=== PATIENT | male | born 1945 | race Caucasian/White ===

== ENCOUNTER 2022-05-25 13:27 | Outpatient (CLI) | payer MEDICARE, SELFPAY ==
[2022-05-25 17:42] LABS: Uric Acid* 6.9 mg/dL (2.2-8.4)
[2022-05-25 18:25] LABS: PCR FLU A Negative PCR FLU A (Negative); PCR FLU B Negative PCR FLU B (Negative); PCR RSV Negative PCR RSV (Negative)
[2022-05-25 18:28] LABS: SARS PCR* Negative SARS-CoV-2 (Negative)
== END 2022-05-25 13:28 | disposition home or self-care (01) ==
PROVIDERS: PCP Family Medicine; Visit Provider Family Medicine
DX: Z20.822 Contact with and (suspected) exposure to COVID-19 (principal); R05.9 Cough, unspecified; M79.675 Pain in left toe(s)
CPT/HCPCS: 84550; 87502; 87634; 87635

== ENCOUNTER 2022-12-29 08:14 | Outpatient (CLI) | payer MEDICARE, SELFPAY | END 2022-12-29 08:15 | disposition home or self-care (01) | LOC: LONREF 08:15 | PROVIDERS: PCP Family Medicine; Visit Provider Family Medicine | DX: I10 Essential (primary) hypertension (principal); E13.9 Other specified diabetes mellitus without complications; E78.5 Hyperlipidemia, unspecified; E66.9 Obesity, unspecified; M10.9 Gout, unspecified | CPT/HCPCS: 80048 ==

== ENCOUNTER 2023-04-26 08:10 | Outpatient (CLI) | payer MEDICARE, SELFPAY | END 2023-04-26 08:11 | disposition home or self-care (01) | PROVIDERS: PCP Internal Medicine; Visit Provider Internal Medicine | DX: Z00.00 Encounter for general adult medical examination without abnormal findings (principal); I10 Essential (primary) hypertension; E13.9 Other specified diabetes mellitus without complications; E78.5 Hyperlipidemia, unspecified; E66.9 Obesity, unspecified; M10.9 Gout, unspecified; R35.0 Frequency of micturition; Z12.5 Encounter for screening for malignant neoplasm of prostate; Z13.9 Encounter for screening, unspecified | CPT/HCPCS: 80053; 80061; 84153 ==

== ENCOUNTER 2023-12-22 08:06 | Outpatient (CLI) | payer MEDICARE, SELFPAY ==
--- OUTSIDE RECORDS SUMMARY | 2023-12-22 08:13 | XMS_ITS | Clinical Summary ---
Author Organization [employer] [facility] [employer] [facility] Address [place], [place] [address] Care Team Providers Care Medical Anthropology Director Name Role Phone Antoine Edgar MD Primary Care Provider [phone] Allergies No known active allergies Medications Medication Sig Dispensed Refills Start Date End Date Status rOPINIRole (REQUIP) 1 mg tablet Take 1 mg by mouth at bedtime. 05/21/2021 Active chlorthalidone (HYGROTON) 25 mg tablet Take 25 mg by mouth once daily. 05/20/2021 Active lisinopriL (PRINIVIL; ZESTRIL) 40 mg tablet Take 40 mg by mouth once daily. 05/21/2021 Active magnesium oxide (MAG-OXIDE ORAL) Take by mouth. Acti ve tamsulosin (FLOMAX) 0.4 mg capsuleIndications:Ga stroesophageal reflux disease, unspecified whether esophagitis present,Abdominal pain, epigastric Take 0.4 mg by mouth. 06/15/2022 Active rosuvastatin (CRESTOR) 10 mg tabletIndications:Gas troesophageal reflux disease, unspecified whether esophagitis present,Abdominal pain, epigastric Take 10 mg by mouth once daily. 04/11/2022 Active indomethacin (INDOCIN) 50 mg capsuleIndications:Ga stroesophageal reflux disease, unspecified whether esophagitis present,Abdominal pain, epigastric TAKE 1 CAPSULE BY MOUTH THREE TIMES DAILY WITH FOOD OR MILK 05/25/2022 Active omeprazole (PRILOSEC) 40 mg Delayed-Release capsuleIndications:Ga stroesophageal reflux disease, unspecified whether esophagitis present,Abdominal pain, epigastric,Hiatal hernia Take 1 Capsule (40 mg) by mouth once daily. Take 30-60 minutes before a meal/food once a day. 90 Capsule 3 09/30/2022 Active Active Problems No known active problems Family History Relation Name Status Comments Father Mother Social History Tobacco Use Types Packs/Day Years Used Date Smoking Tobacco: Former Smokeless Tobacco: Never Tobacco Cessation:Counseling Given: Yes Alcohol Use Standard Drinks/Week Comments Never 0 (1 standard drink = 0.6 oz pur e alcohol) Social Connections Answer Date Recorded Frequency of Communication with Friends and Fami ly Not on file 06/26/2022 Sex and Gender Information Value Date Recorded Sex Assigned at Not on file Gender Identity Not on file Sexual Orientation Not on file Obstetrics History Last Filed Vital Signs Vital Sign Reading Time Taken Comments Blood Pressure 101/59 09/30/2022 9:28 AM CDT Pulse 65 09/30/2022 9:28 AM CDT Temperature 36.3 ??C (97.3 ??F) 07/22/2021 6:45 PM CS T Respiratory Rate 14 09/30/2022 9:28 AM CDT Oxygen Saturation 92% 09/30/2022 9:28 AM CDT Inhaled Oxygen Concentration - - Weight 114.3 kg (252 lb) 06/26/2022 3:25 PM PACKAGER Height 190.5 cm (6' 3) 07/22/2021 11:37 AM PACKAGER Body Mass Index 31.5 07/22/2021 11:37 AM PACKAGER Plan of Treatment Health Maintenance Due Date Last Done Comments Tdap 08/14/1956 Depression screening for age 12+ 1955 BMI (ht and wt on same day) for age 18+ 08/14/1961 Tetanus booster 1963 Zoster (shingles) series for age 50+ (1 of 2) 08/14/1993 Medicare Wellness for age 65+ 08/14/2008 Pneumococcal series for age 65+ (1 of 1 - PCV) 08/14/2008 COVID-19 vaccine series ( season) 2023 04/08/2022, 12/21/2021, 03/24/2021 Influenza for age 65+ 02/06/2024 Medical Devices Implanted Type Area General Utility Maintenance Repairer Device Identifier Shelf Expiration Date Model / Serial / Lot Bone Matrix 3.0cc Augment Injectable - [id number] Implanted:Qty: 1 on 07/22/2021 by Jayden Goldstein MD at [facility] Right: Foot [employer] 10/04/2022 [id number] / / [id number] - [id number] Implanted:Qty: 1 on 07/22/2021 by Jayden Goldstein MD at [facility] Right: Foot 02/02/2022 [id number] / / [id number] Description:OSSIO FIBER COMP RESSION SCREW [id number] Explanted Type Area General Utility Maintenance Repairer Device Identifier Shelf Expiration Date Model / Serial / Lot Wire Kirs .[id number]/Pk Depuy/Garry - [id number] Explanted:Qty: 1 on 07/22/2021 at [facility] Right: Foot [employer] / / Description:[id number] Advance Directives * Full Code (Latest Code Status on File) Date Activated Date Inactivated Comments 07/22/2021 11:01 AM 07/22/2021 9:09 PM Question Answer Comments Code Status Discussion: Per Existing OrderDiscus sed Care Teams Medical Anthropology Director Relationship Specialty Start Date End Date Antoine Edgar MD PCP - General Family Practice 12/05/20
--- OUTSIDE RECORDS SUMMARY | 2023-12-22 08:13 | XMS_ITS | Encounter Summary ---
Author Name [facility] [place] [facility] [place] [facility] [place] Address [address] [place] [id number] Care Team Providers Care Route Contractor Name Role Phone [facility] Primary Care Provider Unavailabl e Insurance Providers: All historical and current Section Date Range: From patient's date of to the date document was created. This section includes the names of all active insurance providers for the patient. Insurance Provider Type of Coverage Plan Name Start of Policy Coverage End of Policy Coverage Group Number Member ID Insurance Provider's Telephone Number Policy Montaño's Name Patient's Relationship to Policy Montaño [facility] (WNR) MEDICARE [facility] ([facility]) Jun 07, 2019 [id number] NATALIE SALCIDO PATIENT [facility] (WNR) MEDICARE [facility] ([facility]) Jun 07, 2019 [id number] NATALIE SALCIDO PATIENT Selected Encounter This section includes the information on record at [place] for the Encounter. Date/Time Encounter Type Encounter Description Reason Provider Source Sep 20, 2023 02:30 PM OFFICE O/P EST MOD 30 MIN PRIMARY CARE/MEDICINE ICD-10-CM Z00.01 Encounter for general adult medical exam w abnormal findings [facility] IHE Encounter Template Text not used by [facility] Assessments - Encounter Diagnoses This section includes the primary and secondary diagnoses documented for the Encounter. Date/Time Primary/Secondary Diagnosis Diagnosis Name Provider Source Sep 20, 2023 03:24 PM PRIMARY Encounter for general adult medical exam w abnormal findings [facility] Sep 20, 2023 03:24 PM SECONDARY Allergic rhinitis, unspecified [facility] Sep 20, 2023 03:24 PM SECONDARY Benign prostatic hyperplasia with lower urinary tract symp [facility] Sep 20, 2023 03:24 PM SECONDARY Essential (primary) hypertension [facility] Sep 20, 2023 03:24 PM SECONDARY Gastro-esophageal reflux disease without esophagitis [facility] Sep 20, 2023 03:24 PM SECONDARY Hyperlipidemia, unspecified [facility] Sep 20, 2023 03:24 PM SECONDARY Obesity, unspecified [facility] Sep 20, 2023 03:24 PM SECONDARY Other obstructive and reflux uropathy [facility] Sep 20, 2023 03:24 PM SECONDARY Sensorineural hearing loss, bilateral [facility] Sep 20, 2023 03:24 PM SECONDARY Type 2 diabetes mellitus without complications [facility] Vital Signs: All taken on the encounter date This section contains inpatient and outpatient Vital Signs collected on the date of the Encounter. Date/Time Temperature Pulse Blood Pressure Respiratory Rate SP02 Pain Height Weight Body Mass Index Source Sep 20, 2023 02:26 PM 97.7 60 128/64 17 98 0 74.25 248.7 32 [facility] Social History: Smoking Status (Most current) and Tobacco Use (All prior to encounter date) This section includes the most current, and the historical, smoking and tobacco- related health factors from the [place] facility where the Encounter took place. Current Smoking Status This section includes the most current smoking, or tobacco-related health factor, from the [place] facility where the Encounter took place. Date/Time Current Smoking Status Kwaku reyes Sep 20, 2023 02:30 PM VA-TOBACCO FORMER USER [facility] Tobacco Use History This section includes a history of the smoking, or tobacco-related health factors, that were collected on or before the date of the Encounter. The data comes from the [place] facility where the Encounter took place. Date/Time Smoking Status/Tobacco Use Comment F acility Sep 20, 2023 02:30 PM VA-TOBACCO QUIT 15 YRS OR MORE [facility] Encounter Notes: All associated encounter notes This section contains the clinical notes associated to the Encounter. Date/Time Encounter Note(s) Provider Source Sep 20, 2023 02:54 PM H & P NOTE: LOCAL TITLE: [facility] ANNUAL VISIT STANDARD TITLE: H & P NOTE DATE OF NOTE: SEP 20, 2023@14:54 ENTRY DATE: SEP 20, 2023@14:54:20 AUTHOR: CLIFF HILL EXP COSIGNER: URGENCY: STATUS: COMPLETED Today's Nurse check-in paper sheet with vitals reviewed. Seen in clinic today respecting current PPE guidelines. Patient brought in outside medical records and have been reviewed: NO Co-managed care with a non-VA provider. Ancelmo Vaughn [facility] Battery Repairer at [facility] Chief complaint:NATALIE SALCIDO is a 78 year old MALE is here for Wellness and preventive medicine visit. The patient has no concerns today. History of Present Illness: Mr. Salcido is a man with a known history of diabetes, hypertension, hyperlipidemia, gout, gastroesophageal reflux, benign prostatic hypertrophy, adenomatous colon polyps, hearing impairment, restless legs, obesity, fatty liver, previous history of skin cancer, vasovagal syncope and hiatal hernia. He is here today for his annual visit and brings all his pill bottles which does not include rosuvastatin. He says he recently ran out of rosuvastatin and is in the process of having it filled at his NON-VA pharmacy. He is tolerating all of his medications without any side effects. He has had occasional cough and feels that he has had a pulled muscle in his left inguinal area. He notes mild discomfort and recalls that it was checked out previously and he did not have a hernia. He does not have any other associated symptoms of nausea or vomiting or diarrhea or constipation or fever or urinary symptoms at this time. He is right-handed and feels that his core strength could be better. He is walking regularly to help reduce weight. He has quit tobacco use and drinks alcohol occasionally. No other concerns today. Review of Systems: is negative, except as above. Past Medical History Active problems - Computerized Problem List is the source for the followin. HTN - Hypertension ([facility] [id number]) 2. Hyperlipidemia ([facility] [id number]) 3. Gout 4. GERD - Gastro-Esophageal Reflux Disease ([facility] 805155060) 5. Benign Prostatic Hypertrophy with Outflow Obstruction ([facility] 173791263) 6. History of adenomatous polyp of colon - Last colonoscopy 10/20/2021 see [facility] records for details 7. Sensorineural Hearing Loss, Bilateral ([facility] [id number]) - USES HEARING AIDS - TOTAL 20%SC; IMPAIRED HEARING (10%-SC) 8. Tinnitus - TOTAL SC 20%; TINNITUS (10%-SC) 9. 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 History of surgery - s/p SKIN CANCER RESECTION - S/P Umbilical hernia repair with Mesh - s/p Shoulder surgery - s/p Right foot surgery with HARDWARE - s/p Uvulopalatopharyngoplasty 11. Body mass index 30+ - obesity 12. Fatty liver 13. Restless legs 14. Vasovagal syncope 15. Hiatal hernia 16. History of squamous cell carcinoma of skin - ALSO HX OF BASAL CELL SKIN CANCER 17. Diabetes Mellitus Type 2 ([facility] [id number]) 18. Exposure to potentially hazardous substance ([facility] [id number]) - Entered through [facility] [facility] Documentation Initiative 19. Allergic Rhinitis ([facility] [id number]) Service: Service Branch Service # Entered Discharge [employer] [id number] JUL 16, 1967 APR 18, 1969 HONORABLE Allergies: Patient has answered NKA Please see med list at the end of this note Physical Exam: Vitals: BP: 128/64 (09/20/2023 14:26) P: 60 (09/20/2023 14:26) R: 17 (09/20/2023 14:26) T: 97.7 F [36.5 C] (09/20/2023 14:26) WT: 248.7 lb [112.81 kg] (09/20/2023 14:26) BMI: 31.8 Pain: 0 (09/20/2023 14:) O2 Sat: 98% (09/20/2023 14:) General: Alert, well dressed and groomed, no apparent distress HEENT: Normocephalic, atraumatic, uses glasses, did not bring his hearing aids, severe hearing impairment noted, clears his throat during conversation. Neck movements intact Lungs: No respiratory distress GI: Abdomen is obese, Skin: is intact, unevenly hyperpigmented irregular lesion noted on left side neck closer to mandible, [place] plans to have this checked with his embalmer assistant, no rash or erythema MS: No joint swelling, ambulates without difficulty Psych: Good eye contact, speech normal rate and rhythm, affect full range Lab/Other data: Previous labs reviewed and he plans get labs done at his [facility]. Assessment/Plan: Wellness/screening visit completed. Active problems - Computerized Problem List is the source for the followin. HTN - Hypertension ([facility] [id number]) 2. Hyperlipidemia ([facility] [id number]) 3. Gout 4. GERD - Gastro-Esophageal Reflux Disease ([facility] [id number]) 5. Benign Prostatic Hypertrophy with Outflow Obstruction ([facility] [id number]) 6. History of adenomatous polyp of colon - Last colonoscopy 10/20/2021 see [facility] records for details 7. Sensorineural Hearing Loss, Bilateral ([facility] [id number]) - USES HEARING AIDS - TOTAL 20%SC; IMPAIRED HEARING (10%-SC) 8. Tinnitus - TOTAL SC 20%; TINNITUS (10%-SC) 9. Exposure to potentially hazardous substance ([facility] [id number]) - Entered through [facility] Documentation Initiative 10. Allergic Rhinitis ([facility] [id number]) 11. Body mass index 30+ - obesity 12. Fatty liver 13. Restless legs 14. Vasovagal syncope 15. Hiatal hernia 16. History of squamous cell carcinoma of skin - ALSO HX OF BASAL CELL SKIN CANCER 17. Diabetes Mellitus Type 2 ([facility] [id number]) Nutrition information provided and I have reviewed portion size necessary along with increasing water and veggie intake as tolerated to help reduce weight. He is given additional information regarding move program. Low salt and low fat diet with regular exercise as tolerated will help improve or maintain normal Blood pressure, cholesterol, maintain good health or improve health is encouraged. Goal blood pressure < 129/79 is discussed. Importance of taking at least 3 servings of dairy per day or taking a multivitamin daily or taking vitamin D 1000 units daily in winter months is discussed. Medications reviewed and is updated, Risk benefits of taking loratadine 10 mg daily and Flonase nasal spray 1 to 2 sprays to each nostril daily is discussed. He plans to get these from [id number]. Importance of compliance with statin use is discussed in detail. He plans to keep his upcoming appointment with his NON-VA clinician to have refills updated. We can consider same-day labs as appropriate at next visit. Please see nursing documentation regarding vaccination. is given number to call for appointments to have vision and hearing checked at [facility] understands and agrees to the plan. Follow up as discussed. Sooner if questions or concerns. Diabetes: Kidney Health Evaluation: eGFR and uACR (estimated Glomerular Filtration Rate and Urine Albumin-Creatinine Ratio)* Patient declines having lab(s) done Comment: Plans to send us records from [facility] Medication Reconciliation: Education Evaluations *Was medication education provided for NEW medications or CHANGES to medications? (including medication name, dose, route, reason for use, and potential side effects). Yes. Verbal education was provided to patient/caregiver and patient/caregiver verbalized understanding. TERATOGENIC MED & CONTRACEPTION REVIEW (Optional)... [place] was informed about potential teratogenic risk of prescribed medications. intentions and need for effective contraception, if applicable, were discussed. MEDICATION RECONCILIATION List Given: An updated medication list was provided to the patient/caregiver. Review Done: The medication list shown below was verified for accuracy and it includes all pending medications/active medications/all medications or discontinued within the last 90 days/all remote medications and non-VA medications. If a given category (i.e. remote meds) is not shown, that means that a patient doesn't have a medication(s) in that category. Allergies listed below were also reviewed/updated for accuracy. Allergies/ADR from [facility] may not display in CPRS. Use JLV MRT5 - Allergies/ADRs FACILITY ALLERGY/ADR -------- [facility] No Known Allergies [facility] NO KNOWN ALLERGIES Active and Recently Outpatient Medications (including Supplies): Start Date Active Non-VA Medications Refills Expiration = 1) Non-VA ALLOPURINOL 100MG TAB SiMG ACTIVE MOUTH EVERY DAY 2) Non-VA CHLORTHALIDONE 25MG TAB Sig: ACTIVE 25MG MOUTH EVERY DAY 3) Non-VA FLUTICASONE PROP 50MCG 120D NASAL ACTIVE INHL Si SPRAYS EACH NOSTRIL EVERY DAY 4) Non-VA INDOMETHACIN 50MG CAP SiMG ACTIVE THREE TIMES A DAY 5) Non-VA LISINOPRIL 40MG TAB SiMG ACTIVE MOUTH EVERY DAY 6) Non-VA LORATADINE 10MG TAB SiMG ACTIVE MOUTH EVERY DAY 7) Non-VA MAGNESIUM OXIDE 400MG TAB Sig: ACTIVE 400MG MOUTH EVERY DAY 8) Non-VA METFORMIN HCL 1000MG TAB Sig: ACTIVE 1000MG MOUTH TWO TIMES A DAY 9) Non-VA OMEPRAZOLE 20MG EC CAP SiMG ACTIVE MOUTH EVERY DAY 10) Non-VA ROPINIROLE HCL 1MG TAB SiMG ACTIVE MOUTH EVERY DAY 11) Non-VA ROSUVASTATIN TAB Si MG TAKE ACTIVE TWO 5MG TABLETS MOUTH EVERY DAY 12) Non-VA TAMSULOSIN HCL 0.4MG CAP Sig: ACTIVE 0.4MG MOUTH EVERY DAY /carmelo/ CLIFF HILL MD PHYSICIAN [facility] Signed: 09/20/2023 15:24 CLIFF HILL [facility] Sep 20, 2023 02:29 PM PRIMARY CARE NURSI NG NOTE: LOCAL TITLE: [facility] NURSING PROGRESS NOTE STANDARD TITLE: PRIMARY CARE NURSING NOTE DATE OF NOTE: SEP 20, 2023@14:29 ENTRY DATE: SEP 20, 2023@14:29:32 AUTHOR: POP BEAVERS EXP COSIGNER: URGENCY: STATUS: COMPLETED TYPE OF VISIT: Appointment Check In Type of appointment: In-person appointment REASON FOR VISIT: ANNUAL ALLERGIES: Patient has answered NKA VITAL SIGNS: Blood Pressure: 128/64 (09/20/2023 14:26) Pulse: 60 (09/20/2023 14:26) Respiration: 17 (09/20/2023 14:26) Temperature: 97.7 F [36.5 C] (09/20/2023 14:26) Weight: 248.7 lb [112.81 kg] (09/20/2023 14:26) Height: 74.25 in [188.6 cm] (09/20/2023 14:26) BMI: 31.8 O2 Sat: 98% (09/20/2023 14:26) Pain: 0 (09/20/2023 14:26) PAIN SCREEN: Patient is not having significant pain that they wish to discuss with their provider today. MEDICATION Active Outpatient Medications (including Supplies): Non-VA ALLOPURINOL 100MG TAB 100MG MOUTH EVERY DAY ACTIVE Non-VA CHLORTHALIDONE 25MG TAB 25MG MOUTH EVERY DAY ACTIVE Non-VA INDOMETHACIN 50MG CAP 50MG THREE TIMES A DAY ACTIVE Non-VA LISINOPRIL 40MG TAB 40MG MOUTH EVERY DAY ACTIVE Non-VA MAGNESIUM OXIDE 400MG TAB 400MG MOUTH EVERY DAY ACTIVE Non-VA OMEPRAZOLE 20MG EC CAP 20MG MOUTH EVERY DAY ACTIVE Non-VA ROPINIROLE HCL 1MG TAB 1MG MOUTH EVERY DAY ACTIVE Non-VA ROSUVASTATIN TAB 10 MG TAKE TWO 5MG TABLETS MOUTH ACTIVE EVERY DAY Non-VA TAMSULOSIN HCL 0.4MG CAP 0.4MG MOUTH EVERY DAY ACTIVE Patient reports the following changes regarding the current pharmacy list of medications: NO CHANGES Over the Counter/Herbal Medications: The patient denies taking any outside medications or herbals. Diabetic Eye Screening: Prior exam/eye care done elsewhere within past year (or within past two years if negative history of retinopathy): Diabetic retinal exam result: Negative for Retinopathy Date: April 07, 2023 Location: [facility] Comment: NEGATIVE PAVE Foot Check: A complete foot check was completed at this encounter. VISUAL INSPECTION: Includes inspection for skin breaks, deformity, erythema, trauma, pallor on elevation, dependent rubor, nail deformities, extensive callus and pitting edema. Visual exam results: Normal PEDAL PULSES: Includes palpation of dorsalis and posterior tibial pulses and signs/symptoms of vascular compromise like pain, pallor, parasthesia or paralysis. Present (even if diminished) SENSORY CHECK: Includes 10 gram Monofilament (Randolph-Josué) test of sensation. Intact (Greater than or equal to 80% of sites checked) Abnormal (Less than 80% of sites checked): Intact LOW-RISK: LOW RISK INFORMATION PROVIDED: 1. Advised patient not to walk barefoot. 2. Explained the importance of daily foot checks for changes. 3. Stressed the importance of daily foot hygiene, including bathing and complete drying. The patient verbalized understanding and was offered a detailed handout on diabetic foot care. Suicide Screen: C-SSRS Screening Dat[place] Suicide Severity Rating Scale (C-SSRS) screener 1. Over the past month, have you wished you were or wished you could go to sleep and not wake up? No 2. Over the past month, have you had any actual thoughts of killing yourself? No 3. Over the past month, have you been thinking about how you might do this? Response not required due to responses to other questions. 4. Over the past month, have you had these thoughts and had some intention of acting on them? Response not required due to responses to other questions. 5. Over the past month, have you started to work out or worked out the details of how to kill yourself? Response not required due to responses to other questions. 6. If yes, at any time in the past month did you intend to carry out this plan? Response not required due to responses to other questions. 7. In your lifetime, have you ever done anything, started to do anything, or prepared to do anything to end your life (for example, collected pills, obtained a gun, gave away valuables, went to the roof but didn't jump)? No 8. If YES, was this within the past 3 months? Response not required due to responses to other questions. Depression Screening: Perform PHQ-2 A PHQ-2 screen was performed. The score was 0 which is a negative screen for depression. Over the past two weeks, how often have you been bothered by the following problems? 1. Little interest or pleasure in doing things Not at all 2. Feeling down, depressed, or hopeless Not at all Alcohol Use Screen (AUDIT-C): Alcohol Screen: SCREEN FOR ALCOHOL (AUDIT-C) An alcohol screening test (AUDIT-C) was negative (score=1). 1. How often did you have a drink containing alcohol in the past year? Consider a drink to be a 12 ounce can or bottle of regular beer, 8 ounces of malt liquor, a 5 ounce glass of table wine, or a 1.5 ounce shot of liquor (like scotch, gin, or vodka). Monthly or less 2. How many drinks containing alcohol did you have on a typical day when you were drinking in the past year? One or two drinks 3. How often did you have six or more drinks on one occasion in the past year? Never Nursing Annual Screening: Fall History Screen During the past 12 months, have you had any falls? Patient does not report any falls in the past 12 months. MEDICATIONS: Patient is on one of the following medication classes: Antihypertensives, Antidepressants, Antipsychotics, Diuretics, or Controlled substance medication used for pain. Script Talk Screen Are you able to read your prescription bottles with your glasses, magnifiers or other aids? Yes or patient not taking any prescriptions. Skin Screen Patient reports any current pressure ulcers, a history of pressure ulcers, or a wound from a medical accounting clerk or Patient is bed-confined or a wheelchair-user or Patient requires assistance to transfer/change position No, Skin Screen is Negative Home Abuse/Violence Screen Is your home free of abuse and violence? Yes MOVE! Program Screen Body Mass Index (BMI)= 31.8 Organ: Collection DT Specimen Test Name Result Units Ref Range 04/13/2023 07:52 BLOOD !! HEMOGLOBIN A1C 6.6 H % 4.0 - 6.0 !! Indicates COMMENTS AVAILABLE...Refer to Interim Lab Report. [place] Hgb A1C: No data available [place] Hgb A1C: No data available Point of Care Hgb A1C: POC HGB A1C____ Outpatient Nutrition Screen Body Mass Index (BMI)= 31.8 Organ: Collection DT Specimen Test Name Result Units Ref Range 04/13/2023 07:52 BLOOD !! HEMOGLOBIN A1C 6.6 H % 4.0 - 6.0 !! Indicates COMMENTS AVAILABLE...Refer to Interim Lab Report. [place] Hgb A1C: No data available [place] Hgb A1C: No data available Point of Care Hgb A1C: POC HGB A1C____ Is patient's BMI less than 18.5? No Does patient have swallowing, coughing, or chewing problems affecting oral intake? No Has patient experienced unplanned weight loss or gain greater than 10 pounds over the last 2 months? No Is patient's Hgb A1C (Glycosylated Hemoglobin) greater than 9.5? No Is patient receiving Total Parenteral Nutrition (TPN) or Tube Feedings? No Patient Health Education Screen BARRIERS/SPECIAL NEEDS: Hearing limitations Visual limitations PREFERRED STYLE OF LEARNING: No preference stated Client Assistive Service (ANABEL) Screen Does the patient require assistance with outpatient visit? No Tobacco Use Screening: The patient is a former tobacco user. The patient quit fifteen or more years ago. Homelessness/Food Insecurity Screen: In the past 2 months, have you been living in stable housing that you own, rent, or stay in as part of a household? Yes - Living in stable housing. Are you worried or concerned that in the next 2 months you may NOT have stable housing that you own, rent, or stay in as part of a household? No - Not worried about housing near future The reports the following: Within the past 12 months, you worried whether your food would run out before you got money to buy more. Never true Within the past 12 months, the food you bought just didn't last and you didn't have money to get more. Never true Food Assistance Programs [facility] Food Assistance Programs [facility] ADV DIR Notification and Screening: ADVANCE DIRECTIVE NOTIFICATION: Patient was given written notification of the following rights: 1. Accept or refuse any medical treatment. 2. Complete a durable power of bankruptcy attorney for health care. 3. Complete a living will. ADVANCE DIRECTIVE SCREENING: Does patient have an Advance Directive? The patient does not have an Advance Directive. The patient does not wish to create an Advance Directive for health care. Sexual Orientation: The patient thinks of their sexual orientation as: Straight or Heterosexual /carmelo/ POP BEAVERS LPN LICENSED PRACTICAL NURSE Signed: 09/20/2023 14:38 POP BEAVERS [facility]
--- OUTSIDE RECORDS SUMMARY | 2023-12-22 08:13 | XMS_ITS ---
[place] [facility] Encounter Summary Created on: December 22, 2023 NATALIE SALCIDO : 1945 Sex: Male Author Name [facility] [facility] [place] Address [address] [place] [address] Care Team Providers Care Recreation Program Coordinator Name Role Phone LIZCLIFF Primary Care Provider Unavailabl e Insurance Providers: [...] Patient's Relationship to Policy Montaño [facility]-CARE OF [facility] (WNR) MEDICARE [facility] ([facility] Jun 07, 2019 [id number] [phone] LOLYNATALIE Logan PATIENT [facility] [place] [facility] (WNR) MEDICARE ADVANTAGE [facility] ([facility] Jun 07, 2019 [id number] [phone] NATALIE SALCIDO PATIENT Selected Encounter This section includes the information on record at [place] for the Encounter. Date/Time Encounter Type Encounter Description Reason Provider Source Jan 21, 2023 09:00 AM MEDICAL NUTRITION INDIV IN NUTRITION/DIETETI CS-INDIVIDUAL ICD-10-CM Z71.3 Dietary counseling and surveillance KASH CARTY IHShad Encounter Template Text not used by [facility] Assessments - Encounter Diagnoses This section includes the primary and secondary diagnoses documented for the Encounter. Date/Time Primary/Secondary Diagnosis Diagnosis Name Provider Source Jan 22, 2023 07:46 AM PRIMARY Dietary counseling and surveillance VANESSA CARTY [facility] Jan 22, 2023 07:46 AM SECONDARY Type 2 diabetes mellitus without complications VANESSA CARTY [facility] Plan of Treatment: Future Appointments (+ 6 months) and Future Tests (+/- 45 days) The Plan of Treatment section includes future care activities for the patient from all [place] treatmentfacilities. This section includes future appointments and future orders which are active, pending or scheduled. Future Appointments This section includes appointments that were scheduled to occur 6 months from the date of the Encounter, up to a maximum of 20 appointments. The data comes from all [place] treatment facilities. Appointment Date/Time Appointment Type Appointme nt Facility Name Mar 02, 2023 10:00 AM AMBULATORY - MEDICINE [facility] Apr 13, 2023 08:00 AM AMBULATORY - NONE [facility] Encounter Notes: All associated encounter notes This section contains the clinical notes associated to the Encounter. Date/Time Encounter Note(s) Provider Source Jan 21, 2023 08:22 AM NUTRITION EDUCATIO N NOTE: LOCAL TITLE: EDUCATION NUTRITION STANDARD TITLE: NUTRITION EDUCATION NOTE DATE OF NOTE: JAN 21, 2023@08:22 ENTRY DATE: JAN 21, 2023@08:22:10 AUTHOR: TOÑA CARTY EXP COSIGNER: URGENCY: STATUS: COMPLETED SUBJECT: NUTRITION NUTRITION EDUCATION OUTPATIENT Initial Time spent: 30 mins Reason for visit: diabetes ASSESSMENT: Height: 74.5 in [189.2 cm] (09/07/2022 10:21) Weight: Measurement DT WEIGHT LB(KG)[BMI] 01/22/2023 07:39 245.9(111.54)[31*] 09/07/2022 10:21 254.1(115.26)[32*] Weight change: -9 lb x 4 months Pertinent Past Medical History: HTN, hiatal hernia,DMT2, GERD, HLD, hx adenomatous polyp of colon, fatty liver, vasovagal syncope, hx squamous cell carcinoma of skin Nutrition Related Medications: non-va: lisinopril oxide, omeprazole, rosuvastatin EDUCATION SCREENING PARTICIPANTS: Patient BARRIERS/SPECIAL NEEDS: no barriers identified READINESS TO LEARN: no barriers Patient subjective statements: Connected w/ in clinic, initial, Sergey present. Pt reports here for diabetes, recent start of metformin (Dr. Herve Hanson). Has been cutting back on bread, and limiting vinson - uses wheat tortilla for sandwiches, Sergey uses brown rice if including rice. Gets cramps in legs - notices walking helps this. 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 Diet Recall Meal 1: 1 slice wheat toast, banana (often) <or> smoothie (van yogurt, fruit) 1/2 mile walk q 5 days/week Meal 2: sandwich w/ wheat tortilla, less vinson, meat, cheese Meal 3: meat (cut out potatoes and rice) vegetable (ie salad mix) Snack: HS snack fruit <or> pecans Fluid intake: 1% milk (1x/day HS), no soda, mostly water, body armor Meal preparation: Dining out: Alcohol: Food Allergies: None Problems related to food security: denied Activity level: 1/2 mile walk 5 days week; milan to stretch - Malnutrition Assessment (Per AND/ASPEN Consensus Statement, 2012) Dietitian does not suspect malnutrition at this time, therefore, physical assessment not conducted Pertinent lab results: HEMOGLOBIN A1C 7.1 H (09/07/22) GLUCOSE 115 H (09/07/22) Lipid Panel: CHOLESTEROL 164 (09/07/22) MEASURED LDL____ HDL 33 L (09/07/22) TRIGLYCERIDE____ LDL CALCULATION 85 (09/07/22) CREATININE 1.2 (09/07/22) Estimated GFR 09/07/2022 11:32 .CREAT EGFR(CKD-E 2 Ref: >=60 Blood Pressure: 156/78 (09/07/2022 10:48) Self-monitored blood glucose: no Carbohydrates per meal: rec 3-4 choices (45-60 g) to start w/ 0-1 per snack per day NUTRITION DIAGNOSIS: Food and nutrition knowledge deficit r/t no formal nutrition education for diabetes AEB A1C 7.1, interested and motivated to make nutrition changes, subjective statements, meal recall INTERVENTION: Provided nutrition education/counseling: - Reviewed plate method using Diabetes Meal Planning_Plan your plate handout. Encouraged pairing CHO + pro for blood sugar management. Reviewed 1 serving = 15 g carb, recommended 3-4 servings/choices per meal to start with. Reviewed serving list of CHO foods. Pt able to verbalize servings of CHO choices in example meal. - Encouraged avoiding added sodium for blood pressure. Able to talk more sodium at follow up. - Commended on cutting out fast food on driving days, adding a walk most days Education provided using: Handouts: Diabetes meal planning plan your plate handout Discussion PARTICIPANT(S) RESPONSE (OUTCOME): Able to communicate or demonstrate understanding with no further questions. FOLLOW UP: Follow up appointment will be scheduled: 1 month RTC /carmelo/ TOÑA CARTY MS, RD, LD Clinical Dietitian Signed: 01/22/2023 07:57 TOÑA CARTY [facility]
--- OUTSIDE RECORDS SUMMARY | 2023-12-22 08:13 | XMS_ITS | Continuity of Care Document ---
Author Name [facility] Organization [facility] Care Team Providers Care Fare Collector Name Role Phone DOD-ND Unavailable Unavailable Problems Combined list of problems from Department of Defense and Veterans Affairs facilities. It does not include entries that were removed or entered in error. Problem Status Onset Date Problem Type Date of Resolution Comments Source Exposure to potentially hazardous substance ([facility] [id number] ) Active 2023 Condition Aug 13, 2023 Entered By: ABEL JOHNSON Comment: [facility] Documentation Initiative [facility] Allergic Rhinitis ([facility] [id number]) Active Condition [facility] Benign Prostatic Hypertrophy with Outflow Obstruction ([facility] [id number]) Active Condition [facility] Body mass index 30+ - obesity Active Condition [facility] Diabetes Mellitus Type 2 ([facility] [id number]) Active Condition [facility] Family social history Active Condition Sep 07, 2022 En tered By: CLIFF HILL Comment: Lives with (day care provider) [facility] a [place] home[facility] Entered By: CLIFF HILL Comment: 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, 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[employer]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 2022 Entered By: CLIFF HILL 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, 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 [place] 2022 Entered By: CLIFF HILL Comment: Alcohol 1-2 drinks monthly or lessApr 2022 Entered By: CLIFF HILL Comment: QUIT Tobacco at age 46 >15 YRS AGO after smoking for 35yrs upto 2PPD, Now Cigars once in a whileApr 2022 Entered By: CLIFF HILL Comment: One Daughter and one son, both are in MNApr 2022 Entered By: CLIFF HILL Comment: Dad had HTN,Lived to 89, Mom was78 had a strokeApr 2022 Entered By: CLIFF HILL Comment: 3 older sisters passed at ages low 80's stroke, 78 or 80 tobacco use, and last one was 60'sApr 2022 Entered By: CLIFF HILL Comment: Walks regularly when weather permits [facility] Fatty liver Active Condition [facility] GERD - Gastro-Esophage al Reflux Disease ([facility] [id number]) Active Condition [facility] Gout Active Condition [facility] Hearing loss Active Condition [facility] Hiatal hernia Active Condition [facility] History of adenomatous polyp of colon Active Condition Sep 07, 2022 Entered By: CLIFF HILL Comment: Last colonoscopy 10/20/2021 see [facility] History of squamous cell carcinoma of skin Active Condition Sep 07, 2022 En tered By: CLIFF HILL Comment: ALSO HX OF BASAL CELL SKIN CANCER [facility] History of surgery Active Condition Sep 07, 2022 En tered By: CLIFF HILL Comment: s/p SKIN CANCER RESECTIONApr 2022 Entered By: CLIFF HILL Comment: S/P Umbilical hernia repair with MeshApr 2022 Entered By: CLIFF HILL Comment: s/p Shoulder surgeryApr 2022 Entered By: CLIFF HILL Comment: s/p Right foot surgery with HARDWAREApr 2022 Entered By: CLIFF HILL Comment: s/p Uvulopalatopharyngoplast y [facility] HTN - Hypertension ([facility] [id number]) Active Condition [facility] Hyperlipidemia Active Condition [facility] Hyperlipidemia ([facility] [id number]) Active Condition [facility] Obesity Active Condition [facility] Restless legs Active Condition [facility] Sensorineural Hearing Loss, Bilateral ([facility] [id number]) Active Condition Sep 07, 2022 En tered By: CLIFF HILL Comment: USES HEARING AIDSApr 2023 Entered By: CLIFF HILL Comment: TOTAL 20%SC; IMPAIRED HEARING (10%-SC) [facility] Tendinitis Active Condition Sep 13 012 Entered By: MANAV FOUNTAIN Comment: Right shoulder [facility] Tinnitus Active Condition [facility] Tinnitus Active Condition Sep 19 24 Entered By: CLIFF HILL Comment: TOTAL SC 20%; TINNITUS (10%-SC) [facility] Vasovagal syncope Active Condition [facility] Diagnosis: ICD-10-CM Z00.01 Encounter for general adult medical exam w abnormal findings Active Diagnosis [facility] Diagnosis: ICD-10-CM Z23 Encounter for immunization Active Diagnosis [facility] Diagnosis: ICD-10-CM Z71.3 Dietary counseling and surveillance Active Diagnosis [facility] Diagnosis: ICD-10-CM E11.9 Type 2 diabetes mellitus without complications Active Diagnosis [facility] Medications Combined list of outpatient medications from Department of Defense and Veterans Affairs facilities.Medications provided include 1) outpatient medications from the last 15 months, and 2) patient-reported medications. Medication Details Route Status Patient Instructions Prescription Expires Prescription Number Last Dispense Date Ordering Provider Order Date Order Qty Source ALLOPURINOL 100MG TAB ALLOPURI NOL 100MG TAB Non-VA TAKE ONE TABLET BY MOUTH EVERY DAY Sep 07, 2022 Non-VA Document ed by: ALESSANDRO HILL Document ed at: [facility] ACTIVE TODD HILL 2022 [facility] CHLORTHALID ONE 25MG TAB CHLORTHA LIDONE 25MG TAB Non-VA TAKE ONE TABLET BY MOUTH EVERY DAY Sep 07, 2022 Non-VA Document ed by: ALESSANDRO HILL Document ed at: [facility] TODD HILL 2022 [facility] FLUTICASONE PROPIONATE 50MCG/SPRAY SOLN,NASAL, 16GM FLUTICAS ONE PROPIONA TE 50MCG/SP RAY SOLN,JOSÉ MIGUEL AL,16GM Non-VA SPRAY 2 SPRAYS IN EACH NOSTRIL EVERY DAY FOR CONGESTI ON Sep 20, 2023 Non-VA Document ed by: ALESSANDRO HILL Document ed at: [facility] NASAL ACTIVE TODD HILL 2023 [facility] INDOMETHACI N 50MG CAP INDOMETH ACIN 50MG CAP Non-VA TAKE 1 CAPSULE TID THREE TIMES A DAY Sep 07, 2022 Non-VA Document ed by: ALESSANDRO HILL Document ed at: [facility] ACTIVE TODD HILL ME S 2022 [facility] LISINOPRIL 40MG TAB LISINOPR IL 40MG TAB Non-VA TAKE ONE TABLET BY MOUTH EVERY DAY Sep 07, 2022 Non-VA Document ed by: ALESSANDRO HILL S Document ed at: [facility]AL ACTIVE TODD HILL ME S 2022 [facility] LORATADINE 10MG TAB LORATADI NE 10MG TAB Non-VA TAKE ONE TABLET BY MOUTH EVERY DAY FOR ALLERGIE S Sep 20, 2023 Non-VA Document ed by: ALESSANDRO HILL S Document ed at: [facility] ORAL ACTIVE TODD HILL ME S 2023 [facility] MAGNESIUM OXIDE 400MG TAB MAGNESIU M OXIDE 400MG TAB Non-VA TAKE ONE TABLET BY MOUTH EVERY DAY Sep 07, 2022 Non-VA Document ed by: ALESSANDRO HILL S Document ed at: [facility] ORAL ACTIVE TODD HILL ME S 2022 [facility] METFORMIN HCL 1000MG TAB METFORMI N HCL 1000MG TAB Non-VA TAKE ONE TABLET BY MOUTH TWO TIMES A DAY FOR DIABETES Sep 20, 2023 Non-VA Document ed by: ALESSANDRO HILL S Document ed at: [facility] ORAL ACTIVE TODD HILL ME S 2023 [facility] NAPROXEN 250MG TAB NAPROXEN 250MG TAB Non-VA TAKE ONE TABLET BY MOUTH TWICE A DAY NEEDED Sep 14, 2011 Non-VA Document ed by: MANAV FOUNTAIN Document ed at: [facility] ORAL ACTIVE Yolande FOUNTAIN 2011 [facility] OMEPRAZOLE 20MG CAP,EC OMEPRAZO LE 20MG CAP,EC Non-VA TAKE 1 CAPSULE BY MOUTH EVERY DAY Sep 07, 2022 Non-VA Document ed by: ALESSANDRO HILL S Document ed at: [facility] ORAL ACTIVE TODD HILL ME S 2022 [facility] ROPINIROLE HCL 1MG TAB ROPINIRO LE HCL 1MG TAB Non-VA TAKE ONE TABLET BY MOUTH EVERY DAY Sep 07, 2022 Non-VA Document ed by: ALESSANDRO HILL Document ed at: [facility] ORAL ACTIVE TODD HILL S 2022 [facility] ROSUVASTATI N TAB ROSUVAST ATIN TAB Non-VA TAKE 10 MG TAKE TWO 5MG TABLETS BY MOUTH EVERY DAY Sep 07, 2022 Non-VA Document ed by: ALESSANDRO HILL Document ed at: [facility] ORAL ACTIVE TODD HILL S 2022 [facility] TAMSULOSIN HCL 0.4MG CAP TAMSULOS IN HCL 0.4MG CAP Non-VA TAKE 1 CAPSULE BY MOUTH EVERY DAY Sep 07, 2022 Non-VA Document ed by: ALESSANDRO HILL Document ed at: [facility] [place] [facility] S 2022 [facility] Immunizations Combined list of available immunizations from the Department of Defense and Veterans Affairs facilities. Immunization Series Date Given Administered By Site Reaction Lot Number CVX Code Drug Community Health Agent Status Comments Source COVID-19 ([employer]), MRNA, LNP-S, PF, MAGGIE-SUCROSE, 30 MCG/0.3 ML (AGES 12+ YEARS) 2022 309 complet ed [facility] RSV, BIVALENT, PROTEIN SUBUNIT RSVPREF, DILUENT RECONSTITUTED , 0.5 ML, PF 2022 305 complet ed [facility] INFLUENZA, HIGH-DOSE, QUADRIVALENT 2022 IVAN TERRY LEFT DELTO ID [id number] 197 complet ed [facility] ZOSTER RECOMBINANT 2022 187 complet ed [facility] ZOSTER RECOMBINANT 1 2022 POP BEAVERS LEFT DELTO ID [id number] 187 complet ed [id number] 11/05/23 [facility] COVID-19 ([employer]), MRNA, LNP-S, BIVALENT BOOSTER, PF, 30 MCG/0.3 ML DOSE 1 2021 300 complet ed [facility] INFLUENZA VACCINE, QUADRIVALENT, ADJUVANTED 2021 205 complet ed [facility] INFLUENZA, UNSPECIFIED FORMULATION 2021 88 complet ed [facility] COVID-19 ([facility]), MRNA, LNP-S, PF, 30 MCG/0.3 ML DOSE, MAGGIE-SUCROSE (AGES 12+ YEARS) 2021 217 complet ed [facility] PNEUMOCOCCAL CONJUGATE PCV20, POLYSACCHARID E [id number] CONJUGATE, ADJUVANT, PF 2021 216 complet ed [facility] COVID-19 ([employer]), MRNA, LNP-S, PF, 30 MCG/0.3 ML DOSE 2020 208 complet ed [facility] INFLUENZA, HIGH-DOSE, QUADRIVALENT 2020 197 complet ed [facility] TDAP 2020 115 complet ed [facility] COVID-19 ([employer]), MRNA, LNP-S, PF, 30 MCG/0.3 ML DOSE 2 2020 208 complet ed PFR; [id number]; 1 [facility] COVID-19 ([employer]), MRNA, LNP-S, PF, 30 MCG/0.3 ML DOSE 1 2020 208 complet ed PFR; [id number]; 1 [facility] INFLUENZA, HIGH-DOSE, QUADRIVALENT 2019 197 complet ed [facility] INFLUENZA, HIGH DOSE SEASONAL 2018 135 complet ed [facility] INFLUENZA, HIGH DOSE SEASONAL 2016 135 complet ed [facility] PNEUMOCOCCAL POLYSACCHARID E [id number] 2015 33 complet ed [facility] PNEUMOCOCCAL, UNSPECIFIED FORMULATION 2011 NONE 109 complet ed [employer]/ [id number]/ [id number] [facility] TDAP 2011 NONE 115 complet ed Sanofi Pasteur/ [id number]/ OCTOBER 28, 2013 [facility] HEP A, ADULT 2006 52 complet ed [facility] TD (ADULT) 2006 138 complet ed [facility] TD (ADULT), 5 LF TETANUS TOXOID, PRESERVATIVE FREE, ADSORBED 2006 113 complet ed [facility] Results Combined list of recent chemistry, hematology and other laboratory results from Department of Defense and Veterans Affairs, ranging from 15 months to all on record, depending upon the facility. Order Name Results Value Reference Range Date Interpretation Specimen Comments Source HEMOGLOBI N A1C HEMOGLOBIN A1C/HEMOGLO BIN.TOTAL IN BLOOD 6.6 4.0 - 6.0 04/13 H Specimen Type: BLOOD Comment: Values obtained from A1C measurement s can vary. For typical A1C assays, a reported value of 7.0 could actually be between 6.7 and 7.3 if measured by a reference method. A reported value of 9.0 could actually be between 8.7 and 9.3. Ref: http://www. ngsp.org/[place] Pdata.asp Ordering Provider: ADIN CARTY Report Released Date/Time: Mar 02, 2023 10:40 AM Reporting Lab: [facility] [address] Performing Lab: [facility] [address] [facility] MICROALBU MIN/CREAT ININE RATIO URINE CREATININE [MASS/VOLUM E] IN URINE 174.0 mg/dL 58.0 - 161.0 09/09 H Specimen Type: URINE No comment entered. Ordering Provider: CLIFF HILL Report Released Date/Time: Sep 09, 2022 08:22 AM Reporting Lab: [facility] [address] Performing Lab: [facility] [address] [facility] MICROALBU MIN/CREAT ININE RATIO URINE MICROALBUMI N/CREATININ E [MASS RATIO] IN URINE 6.5 mg/g{c reat} <29.9 - 29.9 09/09 Specimen Type: URINE No comment entered. Ordering Provider: CLIFF HILL Report Released Date/Time: Sep 09, 2022 08:22 AM Reporting Lab: [facility] [address] Performing Lab: [facility] [address] [facility] MICROALBU MIN/CREAT ININE RATIO URINE MICROALBUMI N [MASS/VOLUM E] IN URINE 11.3 mg/L <29.9 - 29.9 09/09 Specimen Type: URINE No comment entered. Ordering Provider: CLIFF HILL Report Released Date/Time: Sep 09, 2022 08:22 AM Reporting Lab: [facility] [address] Performing Lab: [facility] [address] [facility] ALT/SGPT ALANINE AMINOTRANSF ERASE [ENZYMATIC ACTIVITY/VO LUME] IN SERUM OR PLASMA 52 U/L <55 - 55 09/07 Specimen Type: PLASMA Comment: Elevated triglycerid e result from a non-fasting specimen should be interpreted with caution. A fasting panel is recommended for accurate triglycerid es when trigs are >200 from a non-fasting specimen. Ordering Provider: CLIFF HILL Report Released Date/Time: Sep 07, 2022 11:24 AM Reporting Lab: [facility] [address] Performing Lab: [facility] [address] [facility] B 12 COBALAMIN (VITAMIN B12) [MASS/VOLUM E] IN SERUM OR PLASMA 702 pg/mL 213 - 816 09/07 Specimen Type: SERUM No comment entered. Ordering Provider: CLIFF HILL Report Released Date/Time: Sep 07, 2022 11:24 AM Reporting Lab: [facility] [address] Performing Lab: [facility] [address] [facility] BASIC METABOLIC PANEL+MG CREATININE [MASS/VOLUM E] IN SERUM OR PLASMA 1.2 mg/dL 0.7 - 1.2 09/07 Specimen Type: PLASMA Comment: Elevated triglycerid e result from a non-fasting specimen should be interpreted with caution. A fasting panel is recommended for accurate triglycerid es when trigs are >200 from a non-fasting specimen. Ordering Provider: CLIFF HILL Report Released Date/Time: Sep 07, 2022 11:24 AM Reporting Lab: [facility] [address] Performing Lab: [facility] [address] [facility] BASIC METABOLIC PANEL+MG UREA NITROGEN [MASS/VOLUM E] IN SERUM OR PLASMA 20 mg/dL 8 - 26 09/07 Specimen Type: PLASMA Comment: Elevated triglycerid e result from a non-fasting specimen should be interpreted with caution. A fasting panel is recommended for accurate triglycerid es when trigs are >200 from a non-fasting specimen. Ordering Provider: CLIFF HILL Report Released Date/Time: Sep 07, 2022 11:24 AM Reporting Lab: [facility] [address] Performing Lab: [facility] [address] [facility] BASIC METABOLIC PANEL+MG GLUCOSE [MASS/VOLUM E] IN SERUM OR PLASMA 115 mg/dL 70 - 100 09/07 H Specimen Type: PLASMA Comment: Elevated triglycerid e result from a non-fasting specimen should be interpreted with caution. A fasting panel is recommended for accurate triglycerid es when trigs are >200 from a non-fasting specimen. Ordering Provider: CLIFF HILL Report Released Date/Time: Sep 07, 2022 11:24 AM Reporting Lab: [facility] [address] Performing Lab: [facility] [address] [facility] BASIC METABOLIC PANEL+MG SODIUM [MOLES/VOLU ME] IN SERUM OR PLASMA 138 mmol/L 136 - 145 09/07 Specimen Type: PLASMA Comment: Elevated triglycerid e result from a non-fasting specimen should be interpreted with caution. A fasting panel is recommended for accurate triglycerid es when trigs are >200 from a non-fasting specimen. Ordering Provider: CLIFF HILL Report Released Date/Time: Sep 07, 2022 11:24 AM Reporting Lab: [facility] [address] Performing Lab: [facility] [address] [facility] BASIC METABOLIC PANEL+MG POTASSIUM [MOLES/VOLU ME] IN SERUM OR PLASMA 3.6 mmol/L 3.5 - 5.1 09/07 Specimen Type: PLASMA Comment: Elevated triglycerid e result from a non-fasting specimen should be interpreted with caution. A fasting panel is recommended for accurate triglycerid es when trigs are >200 from a non-fasting specimen. Ordering Provider: CLIFF HILL Report Released Date/Time: Sep 07, 2022 11:24 AM Reporting Lab: [facility] [address] Performing Lab: [facility] [address] [facility] BASIC METABOLIC PANEL+MG CHLORIDE [MOLES/VOLU ME] IN SERUM OR PLASMA 99 mmol/L 98 - 107 09/07 Specimen Type: PLASMA Comment: Elevated triglycerid e result from a non-fasting specimen should be interpreted with caution. A fasting panel is recommended for accurate triglycerid es when trigs are >200 from a non-fasting specimen. Ordering Provider: CLIFF HILL Report Released Date/Time: Sep 07, 2022 11:24 AM Reporting Lab: [facility] [address] Performing Lab: [facility] [address] [facility] BASIC METABOLIC PANEL+MG CARBON DIOXIDE, TOTAL [MOLES/VOLU ME] IN SERUM OR PLASMA 27 mmol/L 22 - 29 09/07 Specimen Type: PLASMA Comment: Elevated triglycerid e result from a non-fasting specimen should be interpreted with caution. A fasting panel is recommended for accurate triglycerid es when trigs are >200 from a non-fasting specimen. Ordering Provider: CLIFF HILL Report Released Date/Time: Sep 07, 2022 11:24 AM Reporting Lab: [facility] [address] Performing Lab: [facility] [address] [facility] BASIC METABOLIC PANEL+MG CALCIUM [MASS/VOLUM E] IN SERUM OR PLASMA 9.6 mg/dL 8.4 - 10.2 09/07 Specimen Type: PLASMA Comment: Elevated triglycerid e result from a non-fasting specimen should be interpreted with caution. A fasting panel is recommended for accurate triglycerid es when trigs are >200 from a non-fasting specimen. Ordering Provider: CLIFF HILL Report Released Date/Time: Sep 07, 2022 11:24 AM Reporting Lab: [facility] [address] Performing Lab: [facility] [address] [facility] BASIC METABOLIC PANEL+MG MAGNESIUM [MASS/VOLUM E] IN SERUM OR PLASMA 1.9 mg/dL 1.6 - 2.6 09/07 Specimen Type: PLASMA Comment: Elevated triglycerid e result from a non-fasting specimen should be interpreted with caution. A fasting panel is recommended for accurate triglycerid es when trigs are >200 from a non-fasting specimen. Ordering Provider: CLIFF HILL Report Released Date/Time: Sep 07, 2022 11:24 AM Reporting Lab: [facility] [address] Performing Lab: [facility] [address] [facility] BASIC METABOLIC PANEL+MG ANION GAP IN SERUM OR PLASMA 12 mmol/L 5 - 15 09/07 Specimen Type: PLASMA Comment: Elevated triglycerid e result from a non-fasting specimen should be interpreted with caution. A fasting panel is recommended for accurate triglycerid es when trigs are >200 from a non-fasting specimen. Ordering Provider: CLIFF HILL Report Released Date/Time: Sep 07, 2022 11:24 AM Reporting Lab: [facility] [address] Performing Lab: [facility] [address] [facility] BASIC METABOLIC PANEL+MG GLOMERULAR FILTRATION RATE/1.73 SQ M.PREDICTED [VOLUME RATE/AREA] IN SERUM, PLASMA OR BLOOD BY CREATININE- BASED FORMULA (CKD-EPI) 62 60 09/07 Specimen Type: PLASMA Comment: Elevated triglycerid e result from a non-fasting specimen should be interpreted with caution. A fasting panel is recommended for accurate triglycerid es when trigs are >200 from a non-fasting specimen. Ordering Provider: CLIFF HILL Report Released Date/Time: Sep 07, 2022 11:24 AM Reporting Lab: [facility] [address] Performing Lab: [facility] [address] [facility] CBC & DIFF LEUKOCYTES [#/VOLUME] IN BLOOD BY AUTOMATED COUNT 6.61 10*3/u L 4.0 - 11.0 09/07 Specimen Type: BLOOD Comment: Automated Differentia l Performed Ordering Provider: CLIFF HILL Report Released Date/Time: Sep 07, 2022 11:24 AM Reporting Lab: [facility] [address] Performing Lab: [facility] [address] [facility] CBC & DIFF ERYTHROCYTE S [#/VOLUME] IN BLOOD BY AUTOMATED COUNT 4.86 10*6/u L 4.6 - 6.2 09/07 Specimen Type: BLOOD Comment: Automated Differentia l Performed Ordering Provider: CLIFF HILL Report Released Date/Time: Sep 07, 2022 11:24 AM Reporting Lab: [facility] [address] Performing Lab: [facility] [address] [facility] CBC & DIFF HEMOGLOBIN [MASS/VOLUM E] IN BLOOD 14.4 g/dL 13.5 - 17.9 09/07 Specimen Type: BLOOD Comment: Automated Differentia l Performed Ordering Provider: CLIFF HILL Report Released Date/Time: Sep 07, 2022 11:24 AM Reporting Lab: [facility] [address] Performing Lab: [facility] [address] [facility] CBC & DIFF HEMATOCRIT [VOLUME FRACTION] OF BLOOD BY AUTOMATED COUNT 42.4 41 - 54 09/07 Specimen Type: BLOOD Comment: Automated Differentia l Performed Ordering Provider: CLIFF HILL Report Released Date/Time: Sep 07, 2022 11:24 AM Reporting Lab: [facility] [address] Performing Lab: [facility] [address] [facility] CBC & DIFF MCV [ENTITIC VOLUME] BY AUTOMATED COUNT 87.2 fL 80 - 100 09/07 Specimen Type: BLOOD Comment: Automated Differentia l Performed Ordering Provider: CLIFF HILL Report Released Date/Time: Sep 07, 2022 11:24 AM Reporting Lab: [facility] [address] Performing Lab: [facility] [address] [facility] CBC & DIFF MCH [ENTITIC MASS] BY AUTOMATED COUNT 29.6 pg 27 - 33 09/07 Specimen Type: BLOOD Comment: Automated Differentia l Performed Ordering Provider: CLIFF HILL Report Released Date/Time: Sep 07, 2022 11:24 AM Reporting Lab: [facility] [address] Performing Lab: [facility] [address] [facility] CBC & DIFF MCHC [MASS/VOLUM E] BY AUTOMATED COUNT 34.0 g/dL 32.0 - 37.5 09/07 Specimen Type: BLOOD Comment: Automated Differentia l Performed Ordering Provider: CLIFF HILL Report Released Date/Time: Sep 07, 2022 11:24 AM Reporting Lab: [facility] [address] Performing Lab: [facility] [address] [facility] CBC & DIFF PLATELETS [#/VOLUME] IN BLOOD BY AUTOMATED COUNT 188 10*3/u L 150 - 400 09/07 Specimen Type: BLOOD Comment: Automated Differentia l Performed Ordering Provider: CLIFF HILL Report Released Date/Time: Sep 07, 2022 11:24 AM Reporting Lab: [facility] [address] Performing Lab: [facility] [address] [facility] CBC & DIFF PLATELET MEAN VOLUME [ENTITIC VOLUME] IN BLOOD BY AUTOMATED COUNT 11.6 fL 7.4 - 10.4 09/07 H Specimen Type: BLOOD Comment: Automated Differentia l Performed Ordering Provider: CLIFF HILL Report Released Date/Time: Sep 07, 2022 11:24 AM Reporting Lab: [facility] [address] Performing Lab: [facility] [address] [facility] CBC & DIFF NEUTROPHILS /100 LEUKOCYTES IN BLOOD BY MANUAL COUNT 56.9 09/07 Specimen Type: BLOOD Comment: Automated Differentia l Performed Ordering Provider: CLIFF HILL Report Released Date/Time: Sep 07, 2022 11:24 AM Reporting Lab: [facility] [address] Performing Lab: [facility] [address] [facility] CBC & DIFF LYMPHOCYTES /100 LEUKOCYTES IN BLOOD BY MANUAL COUNT 33.1 09/07 Specimen Type: BLOOD Comment: Automated Differentia l Performed Ordering Provider: CLIFF HILL Report Released Date/Time: Sep 07, 2022 11:24 AM Reporting Lab: [facility] [address] Performing Lab: [facility] [address] [facility] CBC & DIFF MONOCYTES/1 00 LEUKOCYTES IN BLOOD BY AUTOMATED COUNT 7.9 09/07 Specimen Type: BLOOD Comment: Automated Differentia l Performed Ordering Provider: CLIFF HILL Report Released Date/Time: Sep 07, 2022 11:24 AM Reporting Lab: [facility] [address] Performing Lab: [facility] [address] [facility] CBC & DIFF EOSINOPHILS /100 LEUKOCYTES IN BLOOD BY AUTOMATED COUNT 1.1 09/07 Specimen Type: BLOOD Comment: Automated Differentia l Performed Ordering Provider: CLIFF HILL Report Released Date/Time: Sep 07, 2022 11:24 AM Reporting Lab: [facility] [address] Performing Lab: [facility] [address] [facility] CBC & DIFF BASOPHILS/1 00 LEUKOCYTES IN BLOOD BY MANUAL COUNT 0.8 09/07 Specimen Type: BLOOD Comment: Automated Differentia l Performed Ordering Provider: CLIFF HILL Report Released Date/Time: Sep 07, 2022 11:24 AM Reporting Lab: [facility] [id number] Performing Lab: [facility] [address] [facility] CBC & DIFF ERYTHROCYTE DISTRIBUTIO N WIDTH [RATIO] BY AUTOMATED COUNT 13.2 11.5 - 14.5 09/07 Specimen Type: BLOOD Comment: Automated Differentia l Performed Ordering Provider: CLIFF HILL Report Released Date/Time: Sep 07, 2022 11:24 AM Reporting Lab: [facility] [id number] Performing Lab: [facility] [address] [facility] CBC & DIFF LYMPHOCYTES [#/VOLUME] IN BLOOD BY AUTOMATED COUNT 2.19 10*3/u L 1.0 - 4.0 09/07 Specimen Type: BLOOD Comment: Automated Differentia l Performed Ordering Provider: CLIFF HILL Report Released Date/Time: Sep 07, 2022 11:24 AM Reporting Lab: [facility] [phone] Performing Lab: [facility] [address] [facility] CBC & DIFF MONOCYTES [#/VOLUME] IN BLOOD BY AUTOMATED COUNT 0.52 10*3/u L 0.1 - 1.0 09/07 Specimen Type: BLOOD Comment: Automated Differentia l Performed Ordering Provider: CLIFF HILL Report Released Date/Time: Sep 07, 2022 11:24 AM Reporting Lab: [facility] [phone] Performing Lab: [facility] [address] [facility] CBC & DIFF NEUTROPHILS [#/VOLUME] IN BLOOD BY AUTOMATED COUNT 3.77 10*3/u L 2.0 - 7.7 09/07 Specimen Type: BLOOD Comment: Automated Differentia l Performed Ordering Provider: CLIFF HILL Report Released Date/Time: Sep 07, 2022 11:24 AM Reporting Lab: [facility] [phone] Performing Lab: [facility] [address] [facility] CBC & DIFF EOSINOPHILS [#/VOLUME] IN BLOOD BY AUTOMATED COUNT 0.07 10*3/u L 0 - 0.5 09/07 Specimen Type: BLOOD Comment: Automated Differentia l Performed Ordering Provider: CLIFF HILL Report Released Date/Time: Sep 07, 2022 11:24 AM Reporting Lab: [facility] [phone] Performing Lab: [facility] [address] [facility] CBC & DIFF BASOPHILS [#/VOLUME] IN BLOOD BY AUTOMATED COUNT 0.05 10*3/u L 0 - 0.2 09/07 Specimen Type: BLOOD Comment: Automated Differentia l Performed Ordering Provider: CLIFF HILL Report Released Date/Time: Sep 07, 2022 11:24 AM Reporting Lab: [facility] [address] Performing Lab: [facility] [address] [facility] CBC & DIFF IG(META,MYE LO,PRO) 0.2 09/07 Specimen Type: BLOOD Comment: Automated Differentia l Performed Ordering Provider: CLIFF HILL Report Released Date/Time: Sep 07, 2022 11:24 AM Reporting Lab: [facility] [phone] Performing Lab: [facility] [address] [facility] CBC & DIFF IMMATURE GRANULOCYTE S [PRESENCE] IN BLOOD BY AUTOMATED COUNT 0.01 10*3/u L 0 - 0.1 09/07 Specimen Type: BLOOD Comment: Automated Differentia l Performed Ordering Provider: CLIFF HILL Report Released Date/Time: Sep 07, 2022 11:24 AM Reporting Lab: [facility] [phone] Performing Lab: [facility] [address] [facility] HEMOGLOBI N A1C HEMOGLOBIN A1C/HEMOGLO BIN.TOTAL IN BLOOD 7.1 4.0 - 6.0 09/07 H Specimen Type: BLOOD Comment: Values obtained from A1C measurement s can vary. For typical A1C assays, a reported value of 7.0 could actually be between 6.7 and 7.3 if measured by a reference method. A reported value of 9.0 could actually be between 8.7 and 9.3. Ref: http://www. ngsp.org/[place] Pdata.asp Ordering Provider: CLIFF HILL Report Released Date/Time: Sep 07, 2022 11:24 AM Reporting Lab: [facility] [phone] Performing Lab: [facility] [phone] [facility] LIPID PANEL,NON -FASTING CHOLESTEROL [MASS/VOLUM E] IN SERUM OR PLASMA 164 mg/dL <199 - 199 09/07 Specimen Type: PLASMA Comment: Elevated triglycerid e result from a non-fasting specimen should be interpreted with caution. A fasting panel is recommended for accurate triglycerid es when trigs are >200 from a non-fasting specimen. Ordering Provider: CLIFF HILL Report Released Date/Time: Sep 07, 2022 11:24 AM Reporting Lab: [facility] [phone] Performing Lab: [facility] [phone] [facility] LIPID PANEL,NON -FASTING CHOLESTEROL IN HDL [MASS/VOLUM E] IN SERUM OR PLASMA 33 mg/dL 40 09/07 L Specimen Type: PLASMA Comment: Elevated triglycerid e result from a non-fasting specimen should be interpreted with caution. A fasting panel is recommended for accurate triglycerid es when trigs are >200 from a non-fasting specimen. Ordering Provider: CLIFF HILL Report Released Date/Time: Sep 07, 2022 11:24 AM Reporting Lab: [facility] [address] Performing Lab: [facility] [address] [facility] LIPID PANEL,NON -FASTING CHOLESTEROL IN LDL [MASS/VOLUM E] IN SERUM OR PLASMA BY CALCULATION 85 mg/dL <99 - 99 09/07 Specimen Type: PLASMA Comment: Elevated triglycerid e result from a non-fasting specimen should be interpreted with caution. A fasting panel is recommended for accurate triglycerid es when trigs are >200 from a non-fasting specimen. Ordering Provider: CLIFF HILL Report Released Date/Time: Sep 07, 2022 11:24 AM Reporting Lab: [facility] [address] Performing Lab: [facility] [address] [facility] LIPID PANEL,NON -FASTING CHOLESTEROL IN VLDL [MASS/VOLUM E] IN SERUM OR PLASMA BY CALCULATION 46 mg/dL <29 - 29 09/07 H Specimen Type: PLASMA Comment: Elevated triglycerid e result from a non-fasting specimen should be interpreted with caution. A fasting panel is recommended for accurate triglycerid es when trigs are >200 from a non-fasting specimen. Ordering Provider: CLIFF HILL Report Released Date/Time: Sep 07, 2022 11:24 AM Reporting Lab: [facility] [phone] Performing Lab: [facility] [address] [facility] LIPID PANEL,NON -FASTING CHOLESTEROL NON HDL [MASS/VOLUM E] IN SERUM OR PLASMA 131 mg/dL <129 - 129 09/07 H Specimen Type: PLASMA Comment: Elevated triglycerid e result from a non-fasting specimen should be interpreted with caution. A fasting panel is recommended for accurate triglycerid es when trigs are >200 from a non-fasting specimen. Ordering Provider: CLIFF HILL Report Released Date/Time: Sep 07, 2022 11:24 AM Reporting Lab: [facility] [address] Performing Lab: [facility] [address] [facility] LIPID PANEL,NON -FASTING TRIGLYCERID E [MASS/VOLUM E] IN SERUM OR PLASMA 228 mg/dL <149 - 149 09/07 H Specimen Type: PLASMA Comment: Elevated triglycerid e result from a non-fasting specimen should be interpreted with caution. A fasting panel is recommended for accurate triglycerid es when trigs are >200 from a non-fasting specimen. Ordering Provider: CLIFF HILL Report Released Date/Time: Sep 07, 2022 11:24 AM Reporting Lab: [facility] [phone] Performing Lab: [facility] [address] [facility] TSH W/REFLEX TO FREE T4 THYROTROPIN [UNITS/VOLU ME] IN SERUM OR PLASMA 2.76 u[IU]/ mL 0.35 - 4.94 09/07 Specimen Type: PLASMA Comment: Elevated triglycerid e result from a non-fasting specimen should be interpreted with caution. A fasting panel is recommended for accurate triglycerid es when trigs are >200 from a non-fasting specimen. Ordering Provider: CLIFF HILL Report Released Date/Time: Sep 07, 2022 11:24 AM Reporting Lab: [facility] [address] Performing Lab: [facility] [address] [facility] URIC ACID URATE [MASS/VOLUM E] IN SERUM OR PLASMA 7.1 mg/dL 3.5 - 7.2 09/07 Specimen Type: PLASMA Comment: Elevated triglycerid e result from a non-fasting specimen should be interpreted with caution. A fasting panel is recommended for accurate triglycerid es when trigs are >200 from a non-fasting specimen. Ordering Provider: CLIFF HILL Report Released Date/Time: Sep 07, 2022 11:24 AM Reporting Lab: [facility] [phone] Performing Lab: [facility] [address] [facility] Vital Signs Combined list of inpatient and outpatient Vital Signs from Department of Defense and Veterans Affairs, ranging from 12 months to all on record, depending upon the facility. Vital Sign Value Date Comments Source Encounters Combined list of: 1) Encounters from Department of Veterans Affairs facilities going back up to thelast 18 months. 2) Encounters from the Department of Defense facilities going back up to 280 months. Location Location Details Encounter Type Encounter Number Reason For Visit Attending Provider ADM Date DC Date Status Disposition Source [place] [facility] Outpatient Encounter [id number] 08/18 [place] [facility] [place] [facility] Outpatient Encounter [id number] POP BEAVERS 09/03 [facility] OFFICE O/P EST HI 40-54 MIN [id number] Diagnos is: ICD-10- CM Z00.01 Encount er for general adult medical exam w abnorma l finding s
MAYUR HILL S 09/07 [facility] [place] [facility] TDAP VACCINE 7 YRS/> [place] [id number] POP BEAVERS 09/07 [place] [facility] [place] [facility] Outpatient Encounter [id number] 09/07 [facility] HC PRO PHONE CALL 21-30 MIN [id number] Diagnos is: ICD-10- CM E11.9 Type 2 diabete s mellitu s without complic ations< br/> RBUY TA 10/20 [facility] [place] [facility] Outpatient Encounter [id number] 11/25 [place] [facility] [place] [facility] Outpatient Encounter [id number] 01/13 [facility] [place] [id number] Diagnos is: ICD-10- CM Z71.3 Dietary recreational counselor ing and surveil octavia<b r/> MACHELLE,BROOK CQUELINE N 01/21 [facility] [place] [facility] Outpatient Encounter [id number] 03/01 [place] [facility] NUTRITION INDIV SUBSEQ [id number] Diagnos is: ICD-10- CM Z71.3 Dietary recreational counselor ing and surveil octavia<b r/> MACHELLEBROOK CQUELINE N 03/02 [facility] [place] [facility] Outpatient Encounter [id number] 04/07 [facility] [place]UNIZAT[facility] [place] ADMIN [id number] Diagnos is: ICD-10- CM Z23 Encount er for immuniz ation<b r/> LENA TERRY 04/13 [facility] [place] [facility] Outpatient Encounter [id number] 04/21 [facility] [place] [facility] Outpatient Encounter [id number] 04/26 [facility] OFFICE O/P EST MOD 30 MIN [id number] Diagnos is: ICD-10- CM Z00.01 Encount er for general adult medical exam w abnorma l finding s
MAYUR HILL S 09/19 [facility] Social History Combined list of available smoking, tobacco, and other social history from Department of Defense and [facility] Affairs facilities. Social History Type Response Date Comment Sourc e Tobacco smoking status [facility]-TOBACCO FORMER USER 09/20/2023 [facility] of [facility] History of tobacco use [place]-TOBACCO USER S OME DAYS 09/03/2022 [facility] History of tobacco use CURRENT TOBACCO USER 09/14/2011 [facility]
--- OUTSIDE RECORDS SUMMARY | 2023-12-22 08:13 | XMS_ITS ---
[place] [facility] Encounter Summary Created on: December 22, 2023 NATALIE SALCIDO : 1945 Sex: Male Author Name [facility] [place] [facility] [facility] [place] Address [address] [place] [address] Care Team Providers Care Professor Of Oceanography Name Role Phone [place] Primary Care Provider Unavailabl e Insurance Providers: [...] Patient's Relationship to Policy Montaño [facility] OF [facility] (WNR) MEDICARE [facility] Jun 07, 2019 [id number] LOLYNATALIE Logan PATIENT [facility] (WNR) MEDICARE [facility]) Jun 07, 2019 [id number] [phone] NATALIE SALCIDO PATIENT Selected Encounter This section includes the information on record at [place] for the Encounter. Date/Time Encounter Type Encounter Description Reason Provider Source Mar 02, 2023 10:00 AM MED NUTRITION INDIV SUBSEQ NUTRITION/DIETETI CS-INDIVIDUAL ICD-10-CM Z71.3 Dietary counseling and surveillance KASH CARTY IHShad Encounter Template Text not used by [facility] Assessments - Encounter Diagnoses This section includes the primary and secondary diagnoses documented for the Encounter. Date/Time Primary/Secondary Diagnosis Diagnosis Name Provider Source Mar 02, 2023 10:35 AM PRIMARY Dietary counseling and surveillance VANESSA CARTY CB Mar 02, 2023 10:35 AM SECONDARY Gastro-esophageal reflux disease without esophagitis VANESSA CARTY Mar 02, 2023 10:35 AM SECONDARY Type 2 diabetes mellitus without complications VANESSA CARTY Plan of Treatment: Future Appointments (+ 6 months) and Future Tests (+/- 45 days) The Plan of Treatment section includes future care activities for the patient from all [place] treatmentfacilities. This section includes future appointments and future orders which are active, pending or scheduled. Future Appointments This section includes appointments that were scheduled to occur 6 months from the date of the Encounter, up to a maximum of 20 appointments. The data comes from all [place] treatment facilities. Appointment Date/Time Appointment Type Appointme nt Facility Name Apr 13, 2023 08:00 AM AMBULATORY - NONE [facility] Vital Signs: All taken on the encounter date This section contains inpatient and outpatient Vital Signs collected on the date of the Encounter. Date/Time Temperature Pulse Blood Pressure Respiratory Rate SP02 Pain Height Weight Body Mass Index Source Mar 02, 2023 10:33 AM 248 lb 31 [facility]UR[facility] Encounter Notes: All associated encounter notes This section contains the clinical notes associated to the Encounter. Date/Time Encounter Note(s) Provider Source Mar 02, 2023 10:03 AM NUTRITION EDUCATIO N NOTE: LOCAL TITLE: EDUCATION NUTRITION STANDARD TITLE: NUTRITION EDUCATION NOTE DATE OF NOTE: MAR 02, 2023@10:03 ENTRY DATE: MAR 02, 2023@10:03:32 AUTHOR: TOÑA CARTY EXP COSIGNER: URGENCY: STATUS: COMPLETED SUBJECT: nutrition NUTRITION EDUCATION OUTPATIENT Follow up Time spent: 31 mins Reason for visit: diabetes ASSESSMENT: Height: 74.5 in [189.2 cm] (09/07/2022 10:21) Weight: Measurement DT WEIGHT LB(KG)[BMI] 03/02/2023 10:33 248.0(112.49)[31*] <--standing, actual 01/22/2023 07:39 245.9(111.54)[31*] 09/07/2022 10:21 254.1(115.26)[32*] Weight change: + 2 lb x 1.5 months Pertinent Past Medical History: HTN, hiatal hernia,DMT2, GERD, HLD, hx adenomatous polyp of colon, fatty liver, vasovagal syncope, hx squamous cell carcinoma of skin Nutrition Related Medications: non-va: lisinopril oxide, omeprazole, rosuvastatin EDUCATION SCREENING PARTICIPANTS: Patient, Mary BARRIERS/SPECIAL NEEDS: no barriers identified READINESS TO LEARN: no barriers Patient subjective statements: Met with and Mary in clinic to discuss diabetes. They were distracted and busy this month with purchased new camper, gone. Little time to practice carbohydrate counting, balanced plate. They have cut down on bread, chips. Diet Recall - B - 03/02 Meal 1: juice 1 slice wheat toast, banana (often) <or> smoothie (van yogurt, fruit) 1/2 mile walk 5 days/week Meal 2: sandwich w/ wheat tortilla, less vinson, meat, cheese Meal 3: meat (cut out potatoes and rice) vegetable (ie salad mix) Snack: HS snack fruit <or> pecans Fluid intake: NEW 1/2 1% milk (1x/day HS), no soda, mostly water, body armor Meal preparation: Dining out: Alcohol: Food Allergies: None Problems related to food security: denied Activity level: 1/2 mile walk 5 days week; milan to stretch Malnutrition Assessment (Per AND/ASPEN Consensus Statement, 2012) [...] make nutrition changes, subjective statements, meal recall -- Eval of dx: active INTERVENTION: Provided nutrition education/counseling: - Practiced example meals using 3-4 servings. Example chili and grilled cheese. Receptive, able to count the carb servings/choices - Encouraged pairing carbs with proteins or heart healthy fats (meals/snacks). Had review list of proteins (handout below) for which he'd choose to pair w/ grapes for snack. - Encouraged continued awareness of which foods are carbohydrate foods - Assisted in scheduling A1C lab per request prior to our next appt - Able to review sodium at future appt Education provided using: Handouts: Diabetes meal planning plan your plate handout Discussion PARTICIPANT(S) RESPONSE (OUTCOME): Able to communicate or demonstrate understanding with no further questions. FOLLOW UP: Follow up appointment will be scheduled: 3:00 pm on 04/20 in clinic OB ok - after A1C lab draw from week before. (04/16?) /carmelo/ TOÑA CARTY MS, RD, LD Clinical Dietitian Signed: 03/02/2023 10:52 TOÑA CARTY [facility]
== END 2023-12-22 08:07 | disposition home or self-care (01) ==
PROVIDERS: PCP Internal Medicine; Visit Provider Internal Medicine
DX: I10 Essential (primary) hypertension (principal); E78.5 Hyperlipidemia, unspecified; E13.9 Other specified diabetes mellitus without complications; E66.9 Obesity, unspecified; R35.0 Frequency of micturition; Z12.5 Encounter for screening for malignant neoplasm of prostate
CPT/HCPCS: 80053; 80061; G0103

== ENCOUNTER 2023-12-29 08:08 | Outpatient (CLI) | payer MEDICARE, SELFPAY | END 2023-12-29 08:09 | disposition home or self-care (01) | PROVIDERS: PCP Internal Medicine; Visit Provider Internal Medicine | DX: I10 Essential (primary) hypertension (principal); E13.9 Other specified diabetes mellitus without complications; E78.2 Mixed hyperlipidemia | CPT/HCPCS: 82043; 82570 ==

== ENCOUNTER 2024-02-07 20:33 | Outpatient (CLI) | payer MEDICARE, SELFPAY ==
--- OUTSIDE RECORDS SUMMARY | 2024-02-08 03:40 | XMS_ITS | Clinical Summary ---
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 Height 190.5 cm (6' 3) 07/22/2021 11:37 AM SAFE DEPOSIT BOX RENTAL CLERK Body Mass Index 31.5 07/22/2021 11:37 AM SAFE DEPOSIT BOX RENTAL CLERK Plan of Treatment Health Maintenance Due Date [...] 65+ 02/06/2024 Medical Devices Implanted Type Area Restorer [employer] Device Identifier Shelf Expiration Date Model / Serial / Lot Bone Matrix 3.0cc Augment Injectable - [id number] Implanted:Qty: 1 on 07/22/2021 by Jayden Goldstein MD at [facility] Right: Foot [employer] 10/04/2022 [id number] / / [id number] - [id number] Implanted:Qty: 1 on 07/22/2021 by Jayden Goldstein MD at [facility] Right: Foot 02/02/2022 [id number] / / [id number] Description:OSSIO FIBER COMP RESSION SCREW 4.3X30MM Explanted Type Area Restorer [employer] Device Identifier Shelf Expiration Date Model / Serial / Lot Wire Kirs .[id number] Smoothx6/Pk Depuy/Garry - [id number] Explanted:Qty: 1 on 07/22/2021 at [facility] Right: Foot [employer] / / Description:[id number] Advance Directives * Full Code (Latest Code Status on File) Date Activated Date Inactivated Comments 07/22/2021 11:01 AM 07/22/2021 9:09 PM Question Answer Comments Code Status Discussion: Per Existing OrderDiscus sed Care Teams Groundskeeping Maintenance Relationship Specialty Start Date End Date Antoine Edgar MD PCP - General Family Practice 12/05/20
--- OUTSIDE RECORDS SUMMARY | 2024-02-08 03:40 | XMS_ITS | Continuity of Care Document ---
Author Name [facility] Organization [facility] Care Team Providers Care Collection Advisor Name Role Phone [facility] Unavailable Unavailable Problems Combined list of problems from Department of Defense and Veterans Affairs facilities. It does not include entries that were removed or entered in error. Problem Status Onset Date Problem Type Date of Resolution Comments Source Exposure to potentially hazardous substance ([facility] [id number] ) Active 2023 Condition Aug 13, 2023 Entered By: ABEL JOHNSON Comment: [facility] Documentation Initiative [facility] Allergic Rhinitis ([facility] [id number]) Active Condition [facility] Benign Prostatic Hypertrophy with Outflow Obstruction ([facility] [id number]) Active Condition [facility] Body mass index 30+ - obesity Active Condition [facility] Diabetes Mellitus Type [address] (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 [id number]) Active Condition [facility] Gout Active Condition [facility] Hearing loss Active Condition [facility] Hiatal hernia Active Condition [facility] History of adenomatous polyp of colon Active Condition Sep 07, 2022 Entered By: CLIFF HILL Comment: Last colonoscopy 10/20/2021 see [facility] [place] records for details [facility] History of squamous cell carcinoma of skin Active Condition Sep 07, 2022 En tered By: CLIFF HILL Comment: ALSO HX OF BASAL CELL SKIN CANCER [facility] History of surgery Active Condition Sep 07, 2022 En tered By: CLIFF HILL Comment: s/p SKIN CANCER RESECTIONApr 2022 Entered By: CLIFF HILL Comment: S/P Umbilical hernia repair with MeshApr 2022 Entered By: CLIFF HILL Comment: s/p Shoulder surgeryApr 2022 Entered By: CLIFF HILL Comment: s/p Right foot surgery with HARDWAREApr 2022 Entered By: CLIFF HILL Comment: s/p Uvulopalatopharyngoplast y [facility] HTN - Hypertension ([facility] [id number]) Active Condition [facility] Hyperlipidemia Active Condition [facility] Hyperlipidemia ([facility] [id number]) Active Condition [facility] Obesity Active Condition [facility] Restless legs Active Condition [facility] Sensorineural Hearing Loss, Bilateral ([facility] [id number]) Active Condition Sep 07, 2022 En tered By: CLIFF HILL Comment: USES HEARING AIDSApr 2023 Entered By: CLIFF HILL Comment: TOTAL 20%SC; IMPAIRED HEARING (10%-SC) [facility] Tendinitis Active Condition Sep 13 012 Entered By: MANAV FOUNTAIN Comment: [facility] Tinnitus [facility] Tinnitus Active Condition Sep 19 24 Entered By: CLIFF HILL Comment: TOTAL SC 20%; TINNITUS (10%-SC) [facility] Vasovagal syncope Active Condition [facility] Diagnosis: ICD-10-CM Z00.01 Encounter for general adult medical exam w abnormal findings Active Diagnosis [facility] Diagnosis: ICD-10-CM Z23 Encounter for immunization Active Diagnosis [facility] Diagnosis: ICD-10-CM Z71.3 Dietary counseling and surveillance Active Diagnosis [facility] Diagnosis: ICD-10-CM E11.9 Type 2 diabetes mellitus without complications Active Diagnosis [facility] Medications Combined list of outpatient medications [...] ed by: ALESSANDRO HILL Document ed at: [facility] ACTIVE TODD HILL DC S 2022 [facility] LISINOPRIL 40MG TAB LISINOPR [place] 40MG TAB Non-VA TAKE ONE TABLET BY MOUTH EVERY DAY Sep 07, 2022 Non-VA Document ed by: ALESSANDRO HILL S Document ed at: [facility] ACTIVE TODD HILL DC S 2022 [facility] LORATADINE 10MG TAB LORATADI NE 10MG TAB Non-VA TAKE ONE TABLET BY MOUTH EVERY DAY FOR ALLERGIE S Sep 20, 2023 Non-VA Document ed by: ALESSANDRO HILL S Document ed at: [facility] [place] DC S 2023 [facility] MAGNESIUM OXIDE 400MG TAB MAGNESIU M OXIDE 400MG TAB Non-VA TAKE ONE TABLET BY MOUTH EVERY DAY Sep 07, 2022 Non-VA Document ed by: ALESSANDRO HILL S Document ed at: [facility] ACTIVE TOD[place] DC S 2022 [facility] METFORMIN HCL 1000MG TAB METFORMI N HCL 1000MG TAB Non-VA TAKE ONE TABLET BY MOUTH TWO TIMES A DAY FOR DIABETES Sep 20, 2023 Non-VA Document ed by: ALESSANDRO HILL S Document ed at: [facility] ACTIVE TOD[place] DC S 2023 [facility] NAPROXEN 250MG TAB NAPROXEN 250MG TAB Non-VA TAKE ONE TABLET BY MOUTH TWICE A DAY NEEDED Sep 14, 2011 Non-VA Document ed by: MANAV FOUNTAIN Document ed at: [facility] ORAL ACTIVE Yolande FOUNTAIN 2011 [facility] OMEPRAZOLE 20MG CAP,EC OMEPRAZO LE 20MG CAP,EC Non-VA TAKE 1 CAPSULE BY MOUTH EVERY DAY Sep 07, 2022 Non-VA Document ed by: ALESSANDRO HILL S Document ed at: [facility] ORAL ACTIVE TODD HILL DC S 2022 [facility] ROPINIROLE HCL [...] ed by: ALESSANDRO HILL Document ed at: [facility] ORAL ACTIVE TODD HILL S 2022 [...] Site Reaction Lot Number CVX Code 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 Status Comments Source COVID-19 (myOrder), MRNA, LNP-S, PF, MAGGIE-SUCROSE, 30 MCG/0.3 ML (AGES 12+ YEARS) 2022 309 complet ed [facility] RSV, BIVALENT, PROTEIN SUBUNIT RSVPREF, DILUENT RECONSTITUTED , 0.5 ML, PF 2022 305 complet ed [facility] INFLUENZA, HIGH-DOSE, QUADRIVALENT 2022 IVAN TERRY LEFT DELTO ID [id number] 197 complet ed [facility] ZOSTER RECOMBINANT 2022 187 complet ed [facility] ZOSTER RECOMBINANT 1 2022 POP BEAVERS LEFT DELTO ID [id number] 187 complet ed [id number] 11/05/23 [facility] COVID-19 (myOrder), MRNA, LNP-S, BIVALENT BOOSTER, PF, 30 MCG/0.3 ML DOSE 1 2021 300 complet ed [facility] INFLUENZA VACCINE, QUADRIVALENT, ADJUVANTED 2021 205 complet ed [facility] INFLUENZA, UNSPECIFIED FORMULATION 2021 88 complet ed [facility] COVID-19 ([facility]), MRNA, LNP-S, PF, 30 MCG/0.3 ML DOSE, MAGGIE-SUCROSE (AGES 12+ YEARS) 2021 217 complet ed [facility] PNEUMOCOCCAL CONJUGATE PCV20, POLYSACCHARID E [id number] CONJUGATE, ADJUVANT, PF 2021 216 complet ed [facility] COVID-19 (PFIZER), MRNA, LNP-S, PF, 30 MCG/0.3 ML DOSE 2020 208 complet ed [facility] INFLUENZA, HIGH-DOSE, QUADRIVALENT 2020 197 complet ed [facility] TDAP 2020 115 complet ed [facility] COVID-19 (myOrder), MRNA, LNP-S, PF, 30 MCG/0.3 ML DOSE 2 2020 208 complet ed PFR; [id number]; 1 [facility] COVID-19 (myOrder), MRNA, LNP-S, PF, 30 MCG/0.3 ML DOSE 1 2020 208 complet ed PFR; [id number]; 1 [facility] INFLUENZA, HIGH-DOSE, QUADRIVALENT 2019 197 complet ed [facility] INFLUENZA, HIGH DOSE SEASONAL 2018 135 complet ed [facility] INFLUENZA, HIGH DOSE SEASONAL 2016 135 complet ed [facility] PNEUMOCOCCAL POLYSACCHARID E [id number] 2015 33 complet ed [facility] PNEUMOCOCCAL, UNSPECIFIED FORMULATION 2011 NONE 109 complet ed [employer]/ [id number]/ [id number] [facility] 2011 NONE 115 complet ed Sanofi Pasteur/ [id number]/ OCTOBER 28, 2013 [facility] HEP A, ADULT 2006 52 complet ed [facility] TD (ADULT) 2006 138 complet ed [facility] TD (ADULT), 5 LF TETANUS TOXOID, PRESERVATIVE FREE, ADSORBED 2006 113 complet ed [facility] Results Combined list of recent chemistry, [...] Mar 02, 2023 10:40 AM Reporting Lab: [facility] [address] Performing Lab: [facility] [address] [facility] MICROALBU MIN/CREAT ININE RATIO URINE CREATININE [MASS/VOLUM E] IN URINE 174.0 mg/dL 58.0 - 161.0 09/09 H Specimen Type: URINE No comment entered. Ordering Provider: CLIFF HILL Report Released Date/Time: Sep 09, 2022 08:22 AM Reporting Lab: [facility] [address] Performing Lab: [facility] [address] [facility] MICROALBU MIN/CREAT ININE RATIO URINE MICROALBUMI N/CREATININ E [MASS RATIO] IN URINE 6.5 mg/g{c reat} <29.9 - 29.9 09/09 Specimen Type: URINE No comment entered. Ordering Provider: CLIFF HILL Report Released Date/Time: Sep 09, 2022 08:22 AM Reporting Lab: [facility] [address] Performing Lab: [facility] [address] [facility] MICROALBU MIN/CREAT ININE RATIO URINE MICROALBUMI N [MASS/VOLUM E] IN URINE 11.3 mg/L <29.9 - 29.9 09/09 Specimen Type: URINE No comment entered. Ordering Provider: CLIFF HILL Report Released Date/Time: Sep 09, 2022 08:22 AM Reporting Lab: [facility] [address] Performing Lab: [facility] [address] [facility] ALT/SGPT ALANINE AMINOTRANSF ERASE [ENZYMATIC ACTIVITY/VO [...] Sep 07, 2022 11:24 AM Reporting Lab: [facility] [address] Performing Lab: [facility] [address] [facility] B 12 COBALAMIN (VITAMIN B12) [MASS/VOLUM E] IN SERUM OR PLASMA 702 pg/mL 213 - 816 09/07 Specimen Type: SERUM No comment entered. Ordering Provider: CLIFF HILL Report Released Date/Time: Sep 07, 2022 11:24 AM Reporting Lab: [facility] [address] Performing Lab: [facility] [address] [facility] BASIC METABOLIC PANEL+MG CREATININE [MASS/VOLUM E] [...] Sep 07, 2022 11:24 AM Reporting Lab: [facility] [address] Performing Lab: [facility] [address] [facility] BASIC METABOLIC PANEL+MG UREA NITROGEN [MASS/VOLUM [...] Sep 07, 2022 11:24 AM Reporting Lab: [facility] [address] Performing Lab: [facility] [address] [facility] BASIC METABOLIC PANEL+MG GLUCOSE [MASS/VOLUM E] [...] Sep 07, 2022 11:24 AM Reporting Lab: [facility] [address] Performing Lab: [facility] [address] [facility] BASIC METABOLIC PANEL+MG SODIUM [MOLES/VOLU ME] [...] Sep 07, 2022 11:24 AM Reporting Lab: [facility] [address] Performing Lab: [facility] [address] [facility] BASIC METABOLIC PANEL+MG POTASSIUM [MOLES/VOLU ME] [...] Sep 07, 2022 11:24 AM Reporting Lab: [facility] [address] Performing Lab: [facility] [address] [facility] BASIC METABOLIC PANEL+MG CHLORIDE [MOLES/VOLU ME] IN [...] Sep 07, 2022 11:24 AM Reporting Lab: [facility] [address] Performing Lab: [facility] [address] [facility] BASIC METABOLIC PANEL+MG CARBON DIOXIDE, TOTAL [...] Sep 07, 2022 11:24 AM Reporting Lab: [facility] [address] Performing Lab: [facility] [address] [facility] [employer] BASIC METABOLIC PANEL+MG CALCIUM [MASS/VOLUM E] IN [...] Sep 07, 2022 11:24 AM Reporting Lab: [facility] [address] Performing Lab: [facility] [address] [facility] BASIC METABOLIC PANEL+MG MAGNESIUM [MASS/VOLUM E] [...] Sep 07, 2022 11:24 AM Reporting Lab: [facility] [address] Performing Lab: [facility] [address] [facility] BASIC METABOLIC PANEL+MG ANION GAP IN [...] Sep 07, 2022 11:24 AM Reporting Lab: [facility] [address] Performing Lab: [facility] [address] [facility] BASIC METABOLIC PANEL+MG GLOMERULAR FILTRATION RATE/1.73 [...] Sep 07, 2022 11:24 AM Reporting Lab: [facility] [address] Performing Lab: [facility] [address] [facility] CBC & DIFF LEUKOCYTES [#/VOLUME] IN BLOOD BY AUTOMATED COUNT 6.61 10*3/u L 4.0 - 11.0 09/07 Specimen Type: BLOOD Comment: Automated Differentia l Performed Ordering Provider: CLIFF HILL Report Released Date/Time: Sep 07, 2022 11:24 AM Reporting Lab: [facility] [address] Performing Lab: [facility] [address] [facility] CBC & DIFF ERYTHROCYTE S [#/VOLUME] IN BLOOD BY AUTOMATED COUNT 4.86 10*6/u L 4.6 - 6.2 09/07 Specimen Type: BLOOD Comment: Automated Differentia l Performed Ordering Provider: CLIFF HILL Report Released Date/Time: Sep 07, 2022 11:24 AM Reporting Lab: [facility] [address] Performing Lab: [facility] [address] [facility] CBC & DIFF HEMOGLOBIN [MASS/VOLUM E] IN BLOOD 14.4 g/dL 13.5 - 17.9 09/07 Specimen Type: BLOOD Comment: Automated Differentia l Performed Ordering Provider: CLIFF HILL Report Released Date/Time: Sep 07, 2022 11:24 AM Reporting Lab: [facility] [address] Performing Lab: [facility] [address] [facility] CBC & DIFF HEMATOCRIT [VOLUME FRACTION] OF BLOOD BY AUTOMATED COUNT 42.4 41 - 54 09/07 Specimen Type: BLOOD Comment: Automated Differentia l Performed Ordering Provider: CLIFF HILL Report Released Date/Time: Sep 07, 2022 11:24 AM Reporting Lab: [facility] [address] Performing Lab: [facility] [address] [facility] CBC & DIFF MCV [ENTITIC VOLUME] BY AUTOMATED COUNT 87.2 fL 80 - 100 09/07 Specimen Type: BLOOD Comment: Automated Differentia l Performed Ordering Provider: CLIFF HILL Report Released Date/Time: Sep 07, 2022 11:24 AM Reporting Lab: [facility] [address] Performing Lab: [facility] [address] [facility] CBC & DIFF MCH [ENTITIC MASS] BY AUTOMATED COUNT 29.6 pg 27 - 33 09/07 Specimen Type: BLOOD Comment: Automated Differentia l Performed Ordering Provider: CLIFF HILL Report Released Date/Time: Sep 07, 2022 11:24 AM Reporting Lab: [facility] [address] Performing Lab: [facility] [address] [facility] CBC & DIFF MCHC [MASS/VOLUM E] BY AUTOMATED COUNT 34.0 g/dL 32.0 - 37.5 09/07 Specimen Type: BLOOD Comment: Automated Differentia l Performed Ordering Provider: CLIFF HILL Report Released Date/Time: Sep 07, 2022 11:24 AM Reporting Lab: [facility] [address] Performing Lab: [facility] [address] [facility] CBC & DIFF PLATELETS [#/VOLUME] IN BLOOD BY AUTOMATED COUNT 188 10*3/u L 150 - 400 09/07 Specimen Type: BLOOD Comment: Automated Differentia l Performed Ordering Provider: CLIFF HILL Report Released Date/Time: Sep 07, 2022 11:24 AM Reporting Lab: [facility] [address] Performing Lab: [facility] [address] [facility] CBC & DIFF PLATELET MEAN VOLUME [ENTITIC VOLUME] IN BLOOD BY AUTOMATED COUNT 11.6 fL 7.4 - 10.4 09/07 H Specimen Type: BLOOD Comment: Automated Differentia l Performed Ordering Provider: CLIFF HILL Report Released Date/Time: Sep 07, 2022 11:24 AM Reporting Lab: [facility] [address] Performing Lab: [facility] [address] [facility] CBC & DIFF NEUTROPHILS /100 LEUKOCYTES IN BLOOD BY MANUAL COUNT 56.9 09/07 Specimen Type: BLOOD Comment: Automated Differentia l Performed Ordering Provider: CLIFF HILL Report Released Date/Time: Sep 07, 2022 11:24 AM Reporting Lab: [facility] [address] Performing Lab: [facility] [address] [facility] CBC & DIFF LYMPHOCYTES /100 LEUKOCYTES IN BLOOD BY MANUAL COUNT 33.1 09/07 Specimen Type: BLOOD Comment: Automated Differentia l Performed Ordering Provider: CLIFF HILL Report Released Date/Time: Sep 07, 2022 11:24 AM Reporting Lab: [facility] [address] Performing Lab: [facility] [address] [facility] CBC & DIFF MONOCYTES/1 00 LEUKOCYTES IN BLOOD BY AUTOMATED COUNT 7.9 09/07 Specimen Type: BLOOD Comment: Automated Differentia l Performed Ordering Provider: CLIFF HILL Report Released Date/Time: Sep 07, 2022 11:24 AM Reporting Lab: [facility] [address] Performing Lab: [facility] [address] [facility] CBC & DIFF EOSINOPHILS /100 LEUKOCYTES IN BLOOD BY AUTOMATED COUNT 1.1 09/07 Specimen Type: BLOOD Comment: Automated Differentia l Performed Ordering Provider: CLIFF HILL Report Released Date/Time: Sep 07, 2022 11:24 AM Reporting Lab: [facility] [address] Performing Lab: [facility] [address] [facility] CBC & DIFF BASOPHILS/1 00 LEUKOCYTES IN BLOOD BY MANUAL COUNT 0.8 09/07 Specimen Type: BLOOD Comment: Automated Differentia l Performed Ordering Provider: CLIFF HILL Report Released Date/Time: Sep 07, 2022 11:24 AM Reporting Lab: [facility] [address] Performing Lab: [facility] [address] [facility] CBC & DIFF ERYTHROCYTE DISTRIBUTIO N WIDTH [RATIO] BY AUTOMATED COUNT 13.2 11.5 - 14.5 09/07 Specimen Type: BLOOD Comment: Automated Differentia l Performed Ordering Provider: CLIFF HILL Report Released Date/Time: Sep 07, 2022 11:24 AM Reporting Lab: [facility] [address] Performing Lab: [facility] [address] [facility] CBC & DIFF LYMPHOCYTES [#/VOLUME] IN BLOOD BY AUTOMATED COUNT 2.19 10*3/u L 1.0 - 4.0 09/07 Specimen Type: BLOOD Comment: Automated Differentia l Performed Ordering Provider: CLIFF HILL Report Released Date/Time: Sep 07, 2022 11:24 AM Reporting Lab: [facility] [address] Performing Lab: [facility] [address] [facility] CBC & DIFF MONOCYTES [#/VOLUME] IN BLOOD BY AUTOMATED COUNT 0.52 10*3/u L 0.1 - 1.0 09/07 Specimen Type: BLOOD Comment: Automated Differentia l Performed Ordering Provider: CLIFF HILL Report Released Date/Time: Sep 07, 2022 11:24 AM Reporting Lab: [facility] [address] Performing Lab: [facility] [address] [facility] CBC & DIFF NEUTROPHILS [#/VOLUME] IN BLOOD BY AUTOMATED COUNT 3.77 10*3/u L 2.0 - 7.7 09/07 Specimen Type: BLOOD Comment: Automated Differentia l Performed Ordering Provider: CLIFF HILL Report Released Date/Time: Sep 07, 2022 11:24 AM Reporting Lab: [facility] [address] Performing Lab: [facility] [address] [facility] CBC & DIFF EOSINOPHILS [#/VOLUME] IN BLOOD BY AUTOMATED COUNT 0.07 10*3/u L 0 - 0.5 09/07 Specimen Type: BLOOD Comment: Automated Differentia l Performed Ordering Provider: CLIFF HILL Report Released Date/Time: Sep 07, 2022 11:24 AM Reporting Lab: [facility] [address] Performing Lab: [facility] [address] [facility] CBC & DIFF BASOPHILS [#/VOLUME] IN BLOOD BY AUTOMATED COUNT 0.05 10*3/u L 0 - 0.2 09/07 Specimen Type: BLOOD Comment: Automated Differentia l Performed Ordering Provider: CLIFF HILL Report Released Date/Time: Sep 07, 2022 11:24 AM Reporting Lab: [facility] [address] Performing Lab: [facility] [address] [facility] CBC & DIFF IG(META,MYE LO,PRO) 0.2 09/07 Specimen Type: BLOOD Comment: Automated Differentia l Performed Ordering Provider: CLIFF HILL Report Released Date/Time: Sep 07, 2022 11:24 AM Reporting Lab: [facility] [address] Performing Lab: [facility] [address] [facility] CBC & DIFF IMMATURE GRANULOCYTE S [PRESENCE] IN BLOOD BY AUTOMATED COUNT 0.01 10*3/u L 0 - 0.1 09/07 Specimen Type: BLOOD Comment: Automated Differentia l Performed Ordering Provider: CLIFF HILL Report Released Date/Time: Sep 07, 2022 11:24 AM Reporting Lab: [facility] [address] Performing Lab: [facility] [address] [facility] HEMOGLOBI N A1C HEMOGLOBIN A1C/HEMOGLO [...] Sep 07, 2022 11:24 AM Reporting Lab: [facility] [address] Performing Lab: [facility] [address] [facility] LIPID PANEL,NON -FASTING CHOLESTEROL [MASS/VOLUM [...] Sep 07, 2022 11:24 AM Reporting Lab: [facility] [address] Performing Lab: [facility] [address] [facility] LIPID PANEL,NON -FASTING CHOLESTEROL IN HDL [...] Sep 07, 2022 11:24 AM Reporting Lab: [facility] [address] Performing Lab: [facility] [address] [facility] LIPID PANEL,NON -FASTING CHOLESTEROL IN LDL [...] Sep 07, 2022 11:24 AM Reporting Lab: [facility] [address] Performing Lab: [facility] [address] [facility] LIPID PANEL,NON -FASTING CHOLESTEROL IN VLDL [...] Sep 07, 2022 11:24 AM Reporting Lab: [facility] [address] Performing Lab: [facility] [address] [facility] LIPID PANEL,NON -FASTING CHOLESTEROL NON HDL [...] Sep 07, 2022 11:24 AM Reporting Lab: [facility] [address] Performing Lab: [facility] [address] [facility] LIPID PANEL,NON -FASTING TRIGLYCERID E [...] Sep 07, 2022 11:24 AM Reporting Lab: [facility] [address] Performing Lab: [facility] [address] [facility] TSH W/REFLEX TO FREE T4 [...] Sep 07, 2022 11:24 AM Reporting Lab: [facility] [address] Performing Lab: [facility] [address] [facility] URIC ACID URATE [MASS/VOLUM E] IN SERUM OR PLASMA 7.1 mg/dL 3.5 - 7.2 09/07 Specimen Type: PLASMA Comment: Elevated triglycerid e result from a non-fasting specimen should be interpreted with caution. A fasting panel is recommended for accurate triglycerid es when trigs are >200 from a non-fasting specimen. Ordering Provider: CLIFF HILL Report Released Date/Time: Sep 07, 2022 11:24 AM Reporting Lab: [facility] [address] Performing Lab: [facility] [address] [facility] Vital Signs Combined list of inpatient and [...] DC Date Status Disposition Source [place] [facility] Outpatient Encounter [id number] 08/18 [place] [facility] [place] [facility] Outpatient Encounter [id number] POP BEAVERS 09/03 [facility] OFFICE O/P EST HI 40-54 MIN [id number] Diagnos is: ICD-10- CM Z00.01 Encount er for general adult medical exam w abnorma l finding s
MAYUR HILL S 09/07 [facility] [place] [facility] TDAP VACCINE 7 YRS/> [place] [id number] POP [place]AVERS 09/07 [place] [facility] [place] [facility] Outpatient Encounter [id number] 09/07 [facility] HC PRO PHONE CALL 21-30 MIN [id number] Diagnos is: ICD-10- CM E11.9 Type 2 diabete s mellitu s without complic ations< br/> RUBY TA 10/20 [facility] [place] [facility] Outpatient Encounter [id number] 11/25 [place] [facility] [place] [facility] Outpatient Encounter [id number] 01[facility] [place] [id number] Diagnos is: ICD-10- CM Z71.3 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 travel counselor ing and surveil octavia<b r/> MACHELLE,BROOK CQUELINE N 01/21 [facility] [place] [facility] Outpatient Encounter [id number] 03/01 [place] [facility] MED NUTRITION INDIV SUBSEQ [id number] Diagnos is: ICD-10- CM Z71.3 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 travel counselor ing and surveil octavia<b r/> MACHELLEBROOK CQUELINE N 03/02 [facility] [place] [facility] Outpatient Encounter [id number] 04[facility]07 [facility] IMMUNIZATI ON ADMIN [id number] Diagnos is: ICD-10- CM Z23 Encount er for immuniz ation<b r/> LENA TERRY 04/13 [facility] [place] [facility] Outpatient Encounter [id number] 04/21 [facility] [place] [facility] Outpatient Encounter [id number] 04/26 [facility] OFFICE O/P EST MOD 30 MIN [id number] Diagnos is: ICD-10- CM Z00.01 Encount er for general adult medical exam w abnorma l finding s
MAYUR HILL S 09/19 [facility] Social History Combined list of available smoking, tobacco, and other social history from [employer] and [facility] Affairs facilities. Social History Type Response Date Comment Sourc e Tobacco smoking status [facility] FORMER USER 09/20/2023 [facility] of [facility] 5 [facility] OR MORE [facility]/20/2023 [facility] History of tobacco use CO-TOBACCO USER S OME DAYS 09/03/2022 [facility] History of tobacco use CURRENT TOBACCO USER 09/14/2011 [facility]
== END 2024-02-07 20:34 | disposition home or self-care (01) ==
LOC: AMB 02-08 03:38
PROVIDERS: PCP Internal Medicine; Visit Provider Family Medicine
DX: R55 Syncope and collapse (principal)
CPT/HCPCS: A0425; A0427

== ENCOUNTER 2024-02-07 21:17 | Observation (INO) | payer MEDICARE, SELFPAY ==
[2024-02-07] VITALS (21 sets, daily range): BP systolic 108–137; BP diastolic 61–71; PULSE 55–63; RESP 16; TEMP 36.7; O2SAT 88–98; BMI 32.0
--- NOTE | 2024-02-07 21:50 | ED_ITS ---
HPI - General Adult General Date Seen: 02/07/24 Chief complaint: Weakness Stated complaint: Diarrhea Time Seen by Provider: 02/07/24 21:31 History of Present Illness HPI narrative: 78-year-old gentleman with a past medical history of hypertension (lisinopril, chlorthalidone,), BPH, gout, type 2 diabetes (metformin), dyslipidemia, elevated BMI, liver steatosis, sleep apnea, brought to the ER today by EMS from home for generalized weakness in the setting of diarrhea report from paramedics is that he has not been feeling well for 2 days. notes that he may have had a little bit of shortness of breath on Wednesday but they are not sure if that was truly a symptom of his current illness or not because he was walking up and down some steep hills at home). He definitely began to feel ill 2 days ago on Wednesday with fatigue, malaise, body aches, poor appetite, and decreased energy. His notes that his family members had recently been on a cruise and came home and they are also not feeling well. He had a little bit of a stuffy nose, and they thought possibly an allergy, with a mild cough beginning yesterday. Today he has had a headache, ongoing body aches and fatigue. Poor appetite. Decreased oral intake. This evening he was feeling poorly but needed to go to the bathroom. He was sitting up on the edge of his bed when he blacked out and fell to the floor. It sounds like he had a soft, semi formed stool that his thought was fairly dark colored (but not clearly black? ? ). He all of his recent stools have been brown and nonbloody. He does have a history of GERD and takes a PPI for that. He did not have any diarrhea earlier today until his diarrhea tonight after he fainted. He then had more diarrhea in the bathroom at around the toilet. He was weak enough that his called the ambulance and ambulance brought him in. No fevers but he did have some chills and sweats last night. EMS reported low normal blood pressures when they arrived, and did establish an IV and have administered the beginnings of a 500 mL bolus saline. Repeat blood pressure has been a bit higher in about 110/60 He is not having any chest pain. No palpitations. No trouble breathing. He had a bit of a headache earlier today. He does not think he hit his head when he fell. He is not having any pain in his back or hips. He has a small superficial abrasion on his right anterior juarez that happened when he scraped his juarez on the side of the bed when he was trying to get up after he fainted. Related Data Home Medications ?Medication ?Instructions ?Recorded ?Confirmed magnesium oxide 500 mg PO BID 01/12/22 12/29/23 Previous Rx's ?Medication ?Instructions ?Recorded chlorthalidone 25 mg tablet 25 mg PO QDAY #90 tabs 01/25/24 lisinopril 20 mg tablet 20 mg PO QDAY #90 tabs 01/25/24 tamsulosin 0.4 mg capsule 0.4 mg PO QDAY #90 caps 01/25/24 allopurinol 100 mg tablet 100 mg PO QDAY #90 tabs 01/26/24 metformin 500 mg tablet,extended 1,000 mg (2 x 500 mg) PO QDAY #180 01/26/24 release 24 hr tabs omeprazole 40 mg capsule,delayed 40 mg PO QDAY #90 caps 01/26/24 release ropinirole 1 mg tablet 1 mg PO .hs #90 tabs 01/26/24 rosuvastatin 20 mg tablet 20 mg PO QDAY #90 tabs 01/26/24 nirmatrelvir 150 mg-ritonavir 100 See Rx Instructions PO .COMPLEX 02/08/24 mg tablets in a dose pack #20 ea (Paxlovid) Allergies Allergy/AdvReac Type Severity Reaction Status Date / Time No Known Allergies Allergy Verified 02/07/24 21:29 [facility] Medical History Health care directive on file (07/29/21) ?Z78.9 - Other specified health status (ICD-10) Surgical History Status post uvulopalatopharyngoplasty ?Z98.890 - Other specified postprocedural states (ICD-10) History of umbilical hernia repair ?Z98.890 - Other specified postprocedural states (ICD-10) ?Z87.19 - Personal history of other diseases of the digestive system (ICD-10) History of shoulder surgery ?Z98.890 - Other specified postprocedural states (ICD-10) Social History (Updated 12/22/23 @ 13:14 by Abdulkadir Martins ~ [facility]) What is your current living situation?: I presently have a place to live Problems where you live: no known problems In the past 12 months, utilities in danger of being shut off: no In past 12 months, lack of transportation kept you from medical appts, meetings, work, or getting things needed for daily living: no In the past 12 mos, have been you worried that your food would run out before you had money to buy more?: never true In the past 12 mos, the food you bought just didn't last and you didn't have money to buy more?: never true Smoking Status: Never smoker How often does anyone, including family, friends and others, physically hurt you : never How often does anyone, including family, friends and others, insult or talk down to you: never How often does anyone, including family, friends and others, threaten you with harm: never How often does anyone, including family, friends and others, scream or curse at you: never Little interest or pleasure in doing things: not at all Feeling down, depressed, or hopeless: not at all Exam Narrative: Exam Narrative: Primary Survey: A- patent. Speaking clearly. Phonation normal. No stridor. B- breathing easily. Lung sounds clear and equal. Oxygen saturation normal on room air C- no active bleeding. Blood pressure stable. Symmetric pulses and cap refill in 4 extremities. D- alert and oriented x3. GCS 15. No focal deficits. He looks tired and worn down. Constitutional: Appears well-developed and well-nourished. Alert. Conversant. Non toxic. HENT: Head: Atraumatic. No depressed skull fracture, Raccoon Eyes, Alvarado's sign, or hemotympanum. Face normal. TMs normal Nose: Nose normal. Mouth/Throat: Oral mucosa is clear but dry and mucous membranes are desiccated. Lips are cracked. no trismus. Pharynx normal. Eyes: Conjunctivae normal. EOM normal. Pupils equal, round, and reactive to light. No scleral icterus. Neck: Normal range of motion. Neck supple. No tracheal deviation present. No JVD No posterior midline tenderness or step-off. Cardiovascular: Normal rate, regular rhythm. No gallop. No friction rub. No murmur heard. Symmetric radial and PT artery pulses Pulmonary/Chest: Effort normal. No stridor. No respiratory distress. No wheezes. No rales. No rhonchi . No tenderness. He is able to sit up for posterior lung exam with assistance of 1. While sitting up he gets a cramp in his left quad muscle. Abdominal: Soft. Bowel sounds normal. No distension. No mass. Epigastric tenderness. No definite right upper quadrant tenderness or rebound. No rebound. No guarding. Musculoskeletal: RUE: Normal range of motion. No tenderness. No deformity LUE: Normal range of motion. No tenderness. No deformity RLE: Normal range of motion. No edema. No tenderness. No deformity LLE: Normal range of motion. No edema. No tenderness. No deformity Neurological: Alert and oriented to person, place, and time. Generalized we akness but no focal strength deficit.CN II-VII intact. No sensory deficit. GCS eye subscore is 4. GCS verbal subscore is 5. GCS motor subscore is 6. Normal coordination . Gait not assessed due to generalized weakness. Skin: Skin is warm and dry. No rash noted. No pallor. Normal capillary refill. Psychiatric: Normal mood. Flat affect, I think because he is feeling run down. Const: Vital Signs, click to edit/add: Vital Signs - 24 hr 02/07/24 21:24 Temperature 98.0 F Pulse Rate [Right Pulse Oximeter] 60 Respiratory Rate 16 Blood Pressure [Le ft Upper Arm] 119/62 Pulse Oximetry 98 Oxygen Delivery Me thod Room Air Course Vital Signs Vital signs: Initial Vital Signs Temperature 98.0 F 02/07/24 21:24 Temperature Source Temporal Artery Scan 02/07/24 21:24 Pulse Rate 60 02/07/24 21:24 Pulse Rhythm Regular 02/07/24 21:24 Pulse Strength 3+ Normal 02/07/24 21:24 Respiratory Rate 16 02/07/24 21:24 Blood Pressure 119/62 02/07/24 21:24 Blood Pressure Mean 81 02/07/24 21:24 Blood Pressure Position Supine 02/07/24 21:24 Pulse Oximetry 98 02/07/24 21:24 Oxygen Delivery Method Room Air 02/07/24 21:24 Vital Signs Temperature 98.0 F 02/07/24 21:24 Pulse Rate 60 02/07/24 21:24 Respiratory Rate 16 02/07/24 21:24 Blood Pressure 119/62 02/07/24 21:24 Pulse Oximetry 98 02/07/24 21:24 Oxygen Delivery Method Room Air 02/07/24 21:24 Temperature 98.0 F 02/07/24 21:24 Pulse Rate 60 02/07/24 21:24 Respiratory Rate 16 02/07/24 21:24 Blood Pressure 119/62 02/07/24 21:24 Pulse Oximetry 98 02/07/24 21:24 Oxygen Delivery Method Room Air 02/07/24 21:24 Medical Decision Making MDM Narrative Medical decision making narrative: Pleasant 78 year old gentleman with a past history of BPH, type 2 diabetes, hypertension, as well as few other long-term medical problems but generally independent living home with his . [facility] after he had a fainting spell sitting on the edge of his bed as well as diarrhea that started this evening at home. He has been sick with malaise, poor energy, poor appetite, and URI symptoms since Wednesday, 2 days ago. 1. Infectious disease. Differential here is broad including viral URI, pneumonia, UTI, sepsis, intra-abdominal infection, among others. He is PCR positive for coronavirus. At this point we believe the symptoms probably started Wednesday, and he is on day 3 of illness. He has had some of his COVID vaccines but no booster since at least last year. At this point he has no hypoxia. However I think his COVID is complicated by generalized weakness, dehydration, which likely led to his fainting spell. Patient would be interested in Paxlovid. Based on review of the liver pole COVID-19 med interaction check her, he would have to hold rosuvastatin and tamsulosin while on Paxlovid. Other meds should be compatible. Based on his GFR he does need reduced dose Paxlovid-nirmatrelvir 150 mg and ritonavir 100 mg twice daily for 5 days. The patient is unsure if he wants to take the meds or not. is gone home to go to [facility]. Patient I decided that I would send in a prescription for Paxlovid for him to his pharmacy. 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 Urinalysis not yet obtained at the time of this diagnosis but no recent UTI symptoms CT scan shows nonobstructing bilateral inguinal hernias but no other acute inflammatory abnormalities in the abdomen/pelvis. No evidence for any acute traumatic injury. Sepsis. White count normal. At this point no clear bacterial infection. Suspect his illnesses due to viral infection 2. Cardiac/syncope event. Patient did have a episode where he blacked out and fell off the edge of the bed today. Suspect this was probably orthostatic says syncope due to dehydration from poor oral intake for the past couple of days in the setting of COVID. EKG shows sinus rhythm and no ischemia and no arrhythmogenic abnormality. He is not having any chest pain. No ischemia on EKG. Troponin is normal. 3. Heme. Hemoglobin is minimally low at 12.7. No further diarrhea or signs of active GI bleeding while here in the ER. 4. Renal. creatinine is 1.5. GFR 47. Clinically he looks quite dehydrated based on clinical exam and dry mucous membranes. Received 500 mL of saline per EMS additional 1 L of crystalloid started here in the ER. Venous lactic upon arrival is normal at 1.7 5. Hepatic. Mild elevation of transaminases with AST of 81 and ALT of 91. Total bilirubin 0.5. Alk-phos normal at 47. Lipase normal at 109. 6. Neuro. Has generalized weakness but no focal deficit to suggest stroke. Head CT negative for intracranial bleed in the setting of ground level fall. Disposition. With the patient's ongoing generalized weakness is clear he will require hospitalization for supportive care and IV hydration and monitoring. Fortunately this point he is not having any hypoxia. Discussed with tele hospitalist at 12:43 a.m., Dr. Rudolph. He accepts the patient for admission. Lab Data Labs: Lab Results 02/07/24 02/07/24 Range/Units 21:27 22:50 WBC 5.00 (4.50-11.00) K/uL RBC 4.33 (4.30-5.90) m/uL Hgb 12.7 L (13.5-17.5) gm/dL Hct 38.3 (37.0-53.0) % MCV 89 (80-100) fL MCH 29 (26-34) pg MCHC 33 (32-36) gm/dL RDW Coeff of Mayuri 13.6 (11.5-15.5) % Plt Count 132 L (140-440) K/uL Neut % (Auto) 69.4 (42.0-72.0) % Lymph % (Auto) 15.0 L (20-44) % [place] % (Auto) 14.2 H (0.0-11.0) % Eos % (Auto) 0.4 (0.0-7.0) % Baso % (Auto) 0.2 (0.0-3.0) % Neut # (Auto) 3.47 (1.7-7.0) K/uL Lymph # (Auto) 0.80 L (0.90-2.90) K/uL [place] # (Auto) 0.70 (0.00-0.90) K/UL Eos # (Auto) 0.02 (0.00-0.50) K/uL Baso # (Auto) 0.01 (0.00-0.30) K/uL Abs Immat Gran (auto) 0.04 (0.00-0.30) K/uL Imm/Tot Granulo (auto) 0.8 % Sodium 134 L (135-149) mmol/L Potassium 3.9 (3.6-5.1) mmol/L Chloride 98 (96-114) mmol/L Carbon Dioxide 29 (20-32) mmol/L Anion Gap 7 (7-15) mEq/L BUN 30 (7-30) mg/dL Creatinine 1.5 (0.5-1.5) mg/dL Estimated Creat Clear 45.67 Estimated GFR 47 ml/min Glucose 175 H (60-115) mg/dL Lactate 1.7 (0.5-1.9) mmol/L Calcium 8.6 (8.4-10.6) mg/dL Total Bilirubin 0.5 (0.1-1.5) mg/dL AST 81 H (12-35) U/L ALT 91 H (4-50) U/L Alkaline Phosphatase 47 (40-150) U/L Troponin I < 0.01 L (0.01-0.04) ng/mL Total Protein 7.0 (6.0-8.3) g/dL Albumin 4.3 (3.3-5.0) g/dL Lipase 109 (23-300) U/L SARS-CoV-2 (PCR) POSITIVE SARS-CoV-2 A (Negative) Influenza Type A (PCR) Negative PCR FLU A (Negative) Influenza Type B (PCR) Negative PCR FLU B (Negative) RSV (PCR) Negative PCR RSV (Negative) Imaging Data CT scan - head: Attestation: I have reviewed the pertinent imaging results. Radiologist's impression: IMPRESSION: No acute intracranial abnormality. CT scan - chest: Attestation: I have reviewed the pertinent imaging results. Radiologist's impression: IMPRESSION: No evidence of pulmonary embolism or acute pulmonary process. CT scan - abdomen: Attestation: I have reviewed the pertinent imaging results. Radiologist's impression: IMPRESSION: 1. No acute abdominal or pelvic abnormality. 2. Increased size of the bilateral inguinal hernias, now containing nondistended sigmoid colon in the left inguinal hernia. 3. Colonic diverticulosis without evidence of diverticulitis. 4. Mild hepatic steatosis. ECG Data Attestation: I personally reviewed and interpreted this ECG as follows: Interpretation: Normal sinus rhythm Rate: 62 KS: 180. No delta waves QRS axis: Normal axis. No pathologic Q-waves. ST segment/T wave: No ST segment elevation or depression. No Brugada syndrome. QTc: 410 Discharge Plan Discharge Clinical Impression: COVID, Weakness, Syncope, Diarrhea Prescriptions: New Paxlovid 150-100 mg tablets,dose pack See Rx Instructions .ROUTE .COMPLEX Qty: 20 0RF Rx Instructions: orally per package directions No Action magnesium oxide 500 mg tablet 500 mg PO BID lisinopril 20 mg tablet 20 mg PO QDAY Qty: 90 3RF tamsulosin 0.4 mg capsule 0.4 mg PO QDAY Qty: 90 3RF chlorthalidone 25 mg tablet 25 mg PO QDAY Qty: 90 1RF metformin 500 mg tablet extended release 24 hr 1,000 mg PO QDAY Qty: 180 1RF rosuvastatin 20 mg tablet 20 mg PO QDAY Qty: 90 3RF ropinirole 1 mg tablet 1 mg PO .hs Qty: 90 1RF omeprazole 40 mg capsule,delayed release(DR/EC) 40 mg PO QDAY Qty: 90 3RF allopurinol 100 mg tablet 100 mg PO QDAY Qty: 90 2RF Follow Up/Referrals: Jose Torrez MD [Primary Care Provider] -
[2024-02-07 22:09] LABS: PCR FLU A Negative PCR FLU A (Negative); PCR FLU B Negative PCR FLU B (Negative); PCR RSV Negative PCR RSV (Negative); SARS PCR* POSITIVE SARS-CoV-2 (Negative)
--- NOTE | 2024-02-07 22:32 | CRLHL7_ITS ---
For Patients: As a result of the Century Cures Act, medical imaging exams and procedure reports are released immediately into your electronic medical record. You may view this report before your referring provider. If you have questions, please contact your health care provider. INDICATION: Weakness, diarrhea, abdominal pain. TECHNIQUE: CT abdomen and pelvis acquired with 95 cc Isovue 370 IV contrast. COMPARISON: CT abdomen and pelvis 08/21/2019. FINDINGS: Lower chest: Please refer to separate concurrent CT chest PE. Liver: Mild hepatic steatosis. No suspicious masses. Gallbladder and bile ducts: Unremarkable. No stones or inflammation. No biliary ductal dilatation. Spleen: Unremarkable. Normal in size. No masses. Adrenal glands: Unremarkable. No nodules. Pancreas: Unremarkable. No mass or inflammation. Kidneys: Bilateral renal cysts. Subcentimeter hypodense foci are too small to accurately characterize. No stones or hydronephrosis. GI tract: Tiny hiatal hernia. Colonic diverticulosis without evidence of diverticulitis. No evidence of obstruction. Normal appendix. Lymph nodes: No lymphadenopathy. Vasculature: Moderate scattered atherosclerotic calcifications. Abdominal aorta is normal in caliber. Omentum/Peritoneum/Abdominal Wall: No free air or significant free fluid. Increased size of the bilateral inguinal hernias, now containing nondistended sigmoid colon in the left inguinal hernia. Pelvis: Unremarkable. Bones: Degenerative changes. IMPRESSION: 1. No acute abdominal or pelvic abnormality. 2. Increased size of the bilateral inguinal hernias, now containing nondistended sigmoid colon in the left inguinal hernia. 3. Colonic diverticulosis without evidence of diverticulitis. 4. Mild hepatic steatosis. Please note that all CT scans at this facility use dose modulation, iterative reconstruction, and/or weight-based dosing when appropriate to reduce radiation dose to as low as reasonably achievable. Dictated by Tae Talbot MD @ 02/08/2024 12:33:38 AM (Electronically Signed)
--- NOTE | 2024-02-07 22:32 | CRLHL7_ITS ---
For Patients: As a result of the Century Cures Act, medical imaging exams and procedure reports are released immediately into your electronic medical record. You may view this report before your referring provider. If you have questions, please contact your health care provider. INDICATION: Weakness, syncope. TECHNIQUE: CT chest PE was acquired with 95 cc Isovue 370 IV contrast. COMPARISON: CT chest 08/21/2019. FINDINGS: Heart and vasculature: Contrast opacification of the pulmonary arterial tree is adequate. No sign of pulmonary embolism. Heart size is normal. Thoracic aorta and pulmonary artery are normal in caliber. Mild coronary artery calcifications. Lungs and pleura: Mild emphysema. No acute infiltrates. Stable few sub 6 mm pulmonary nodules, considered benign given small size and long-term stability. No new pulmonary nodules. No pleural effusions, pleural thickening, or pneumothorax. Lymph nodes/mediastinum: No mediastinal, hilar, or axillary adenopathy. Thyroid gland is unremarkable. Chest wall: No masses. Upper abdomen: Please refer to separate concurrent CT abdomen and pelvis. Bones: Degenerative changes. IMPRESSION: No evidence of pulmonary embolism or acute pulmonary process. Please note that all CT scans at this facility use dose modulation, iterative reconstruction, and/or weight-based dosing when appropriate to reduce radiation dose to as low as reasonably achievable. Dictated by Tae Talbot MD @ 02/08/2024 12:28:27 AM (Electronically Signed)
--- NOTE | 2024-02-07 22:35 | CRLHL7_ITS ---
For Patients: As a result of the Century Cures Act, medical imaging exams and procedure reports are released immediately into your electronic medical record. You may view this report before your referring provider. If you have questions, please contact your health care provider. INDICATION: Weakness, syncope. TECHNIQUE: CT head without contrast. COMPARISON: CT head 07/09/2020. FINDINGS: CSF spaces: Proportionate prominence of the ventricles and sulci, reflecting mild generalized cerebral volume loss. Brain parenchyma: The rivas-white differentiation is maintained. Patchy white matter low attenuation changes, nonspecific but likely reflecting chronic small vessel ischemic disease. No sign of mass, hemorrhage, or midline shift. Skull base and calvarium: Mild scattered mucosal thickening in the ethmoid, sphenoid, and maxillary sinuses. Mastoid air cells are clear. The visualized orbits are grossly unremarkable. No skull fractures. IMPRESSION: No acute intracranial abnormality. Please note that all CT scans at this facility use dose modulation, iterative reconstruction, and/or weight-based dosing when appropriate to reduce radiation dose to as low as reasonably achievable. Dictated by Tae Talbot MD @ 02/08/2024 12:24:02 AM (Electronically Signed)
--- OUTSIDE RECORDS SUMMARY | 2024-02-07 22:37 | XMS_ITS | Continuity of Care Document ---
Author Name [facility] Organization [facility] Care Team Providers Care Pan Puller Name Role Phone [facility] Unavailable Unavailable Problems Combined list of problems from Department of Defense and Veterans Affairs facilities. It does not include entries that were removed or entered in error. Problem Status Onset Date Problem Type Date of Resolution Comments Source Exposure to potentially hazardous substance ([facility] [id number] ) Active 2023 Condition Aug 13, 2023 Entered By: ABEL JOHNSON [facility]: [facility] Documentation Initiative [facility] Allergic Rhinitis ([facility] [id number]) Active Condition [facility] Benign Prostatic Hypertrophy with Outflow Obstruction ([facility] [id number]) Active Condition [facility] Body mass index 30+ - obesity Active Condition [facility] Diabetes Mellitus Type 2 ([facility] [id number]) Active Condition [facility] Family social history Active Condition Sep 07, 2022 En tered By: CLIFF HILL Comment: Lives with (day care provider) [place] [facility] Entered By: CLIFF HILL Comment: 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 Hiatal hernia Active Condition [facility] History of adenomatous polyp of colon Active Condition Sep 07, 2022 Entered By: CLIFF HILL Comment: Last colonoscopy 10/20/2021 see [facility] [place] [facility] History of squamous cell carcinoma of skin Active Condition Sep 07, 2022 En tered By: CLIFF HILL Comment: ALSO HX OF BASAL CELL SKIN CANCER [facility] History of surgery Active Condition Sep 07, 2022 En tered By: CLIFF HILL Comment: s/p SKIN CANCER RESECTIONApr 2022 Entered By: CLIFF HILL Comment: S/P Umbilical hernia repair with MeshApr 2022 Entered By: CLIFF HILL Comment: s/p Shoulder surgeryApr 2022 Entered By: CLIFF HILL Comment: s/p Right foot surgery with HARDWAREApr 2022 Entered By: CLIFF HILL Comment: s/p Uvulopalatopharyngoplast y [facility] HTN - Hypertension ([facility] [id number]) Active Condition [facility] Hyperlipidemia Active Condition [facility] Hyperlipidemia ([facility] [id number]) Active Condition [facility] Obesity Active Condition [facility] Restless legs Active Condition [facility] Sensorineural Hearing Loss, Bilateral ([facility] [id number]) Active Condition Sep 07, 2022 En tered By: CLIFF HILL Comment: USES HEARING AIDSApr 2023 Entered By: CLIFF HILL Comment: TOTAL 20%SC; IMPAIRED HEARING (10%-SC) [facility] Tendinitis Active Condition Sep 13 012 Entered By: MANAV FOUNTAIN Comment: Right shoulder [facility] Tinnitus Active Condition [facility] Tinnitus Active Condition Sep 19 24 Entered By: CLIFF HILL Comment: TOTAL SC 20%; TINNITUS (10%-SC) [facility] Vasovagal syncope Active Condition [facility] Diagnosis: ICD-10-CM Z00.01 Encounter for general adult medical exam w abnormal findings Active Diagnosis [facility] Diagnosis: ICD-10-CM Z23 Encounter for immunization Active Diagnosis [facility] Diagnosis: ICD-10-CM Z71.3 Dietary counseling and surveillance Active Diagnosis [facility] Diagnosis: ICD-10-CM E11.9 Type 2 diabetes mellitus without complications Active Diagnosis [facility] Medications Combined list of outpatient medications [...] ed by: ALESSANDRO HILL Document ed at: [facility] ACTIVE TODD HILL RI S 2022 [facility] LISINOPRIL 40MG TAB LISINOPR [place] 40MG TAB Non-VA TAKE ONE TABLET BY MOUTH EVERY DAY Sep 07, 2022 Non-VA Document ed by: ALESSANDRO HILL S Document ed at: [facility] ACTIVE TODD HILL RI S 2022 [facility] LORATADINE 10MG TAB LORATADI NE 10MG TAB Non-VA TAKE ONE TABLET BY MOUTH EVERY DAY FOR ALLERGIE S Sep 20, 2023 Non-VA Document ed by: ALESSANDRO HILL S Document ed at: [facility] TODD HILL RI S 2023 [facility] MAGNESIUM OXIDE 400MG TAB MAGNESIU M OXIDE 400MG TAB Non-VA TAKE ONE TABLET BY MOUTH EVERY DAY Sep 07, 2022 Non-VA Document ed by: ALESSANDRO HILL S Document ed at: [facility] ACTIVE TODD HILL RI S 2022 [facility] METFORMIN HCL 1000MG TAB METFORMI N HCL 1000MG TAB Non-VA TAKE ONE TABLET BY MOUTH TWO TIMES A DAY FOR DIABETES Sep 20, 2023 Non-VA Document ed by: ALESSANDRO HILL S Document ed at: [facility] ACTIVE TODD HILL RI S 2023 [facility] NAPROXEN 250MG TAB NAPROXEN 250MG TAB Non-VA TAKE ONE TABLET BY MOUTH TWICE A DAY NEEDED Sep 14, 2011 Non-VA Document ed by: MANAV FOUNTAIN Document ed at: [facility] ORAL ACTIVE Yolande FOUNTAIN 2011 [facility] OMEPRAZOLE 20MG CAP,EC OMEPRAZO LE 20MG CAP,EC Non-VA TAKE 1 CAPSULE BY MOUTH EVERY DAY Sep 07, 2022 Non-VA Document ed by: ALESSANDRO HILL S Document ed at: [facility] ORAL ACTIVE TODD HILL RI S 2022 [facility] ROPINIROLE HCL [...] ed by: ALESSANDRO HILL Document ed at: [facility] ORAL ACTIVE TODD HILL S 2022 [...] Site Reaction Lot Number CVX Code Drug Director Product Status Comments Source COVID-19 (BuildOut), MRNA, LNP-S, PF, MAGGIE-SUCROSE, 30 MCG/0.3 ML (AGES 12+ YEARS) [address] [facility] RSV, BIVALENT, PROTEIN SUBUNIT RSVPREF, DILUENT RECONSTITUTED , 0.5 ML, PF [address] [facility] INFLUENZA, HIGH-DOSE, QUADRIVALENT 2022 IVAN TERRY LEFT DELTO ID [id number] 197 complet ed [facility] ZOSTER RECOMBINANT [address] [facility] ZOSTER RECOMBINANT 1 2022 POP BEAVERS LEFT DELTO ID [id number] 187 complet ed [id number] 11/05/23 [facility] COVID-19 (BuildOut), MRNA, LNP-S, BIVALENT BOOSTER, PF, 30 MCG/0.3 ML DOSE [address] [facility] INFLUENZA VACCINE, QUADRIVALENT, ADJUVANTED [address] [facility] INFLUENZA, UNSPECIFIED FORMULATION [address] [facility] COVID-19 ([place]), MRNA, LNP-S, PF, 30 MCG/0.3 ML DOSE, MAGGIE-SUCROSE (AGES 12+ YEARS) [address] [facility] PNEUMOCOCCAL CONJUGATE PCV20, POLYSACCHARID E [id number] CONJUGATE, ADJUVANT, PF [address] [facility] COVID-19 (PFIZER), MRNA, LNP-S, PF, 30 MCG/0.3 ML DOSE [address] [facility] INFLUENZA, HIGH-DOSE, QUADRIVALENT [address] [facility] TDAP [address] [facility] COVID-19 (BuildOut), MRNA, LNP-S, PF, 30 MCG/0.3 ML DOSE 2 2020 208 complet ed PFR; [id number]; 1 [facility] COVID-19 (BuildOut), MRNA, LNP-S, PF, 30 MCG/0.3 ML DOSE 1 2020 208 complet ed PFR; [id number]; 1 [facility] INFLUENZA, HIGH-DOSE, QUADRIVALENT [address] [facility] INFLUENZA, HIGH DOSE SEASONAL [address] [facility] INFLUENZA, HIGH DOSE SEASONAL [address] [facility] PNEUMOCOCCAL POLYSACCHARID E [id number] [address] [facility] PNEUMOCOCCAL, UNSPECIFIED FORMULATION 2011 NONE 109 complet ed [employer]/ [id number]/ [id number] 2011 NONE 115 complet ed [employer] Paste[employer]/ [id number]/ OCTOBER 28, 2013 [facility] HEP A, ADULT [address] [facility] TD (ADULT) [address] [facility] TD (ADULT), 5 LF TETANUS TOXOID, PRESERVATIVE FREE, ADSORBED [address] [facility] Results Combined list of recent chemistry, hematology [...] Mar 02, 2023 10:40 AM Reporting Lab: [facility] [address] Performing Lab: [facility] [address] [facility] MICROALBU MIN/CREAT ININE RATIO URINE CREATININE [MASS/VOLUM E] IN URINE 174.0 mg/dL 58.0 - 161.0 09/09 H Specimen Type: URINE No comment entered. Ordering Provider: CLIFF HILL Report Released Date/Time: Sep 09, 2022 08:22 AM Reporting Lab: [facility] [address] Performing Lab: [facility] [address] [facility] MICROALBU MIN/CREAT ININE RATIO URINE MICROALBUMI N/CREATININ E [MASS RATIO] IN URINE 6.5 mg/g{c reat} <29.9 - 29.9 09/09 Specimen Type: URINE No comment entered. Ordering Provider: CLIFF HILL Report Released Date/Time: Sep 09, 2022 08:22 AM Reporting Lab: [facility] [address] Performing Lab: [facility] [address] [facility] MICROALBU MIN/CREAT ININE RATIO URINE MICROALBUMI N [MASS/VOLUM E] IN URINE 11.3 mg/L <29.9 - 29.9 09/09 Specimen Type: URINE No comment entered. Ordering Provider: CLIFF HILL Report Released Date/Time: Sep 09, 2022 08:22 AM Reporting Lab: [facility] [address] Performing Lab: [facility] [address] [facility] TSH W/REFLEX TO FREE T4 [...] Sep 07, 2022 11:24 AM Reporting Lab: [facility] [address] Performing Lab: [facility] [address] [facility] URIC ACID URATE [MASS/VOLUM E] IN SERUM OR PLASMA 7.1 mg/dL 3.5 - 7.2 09/07 Specimen Type: PLASMA Comment: Elevated triglycerid e result from a non-fasting specimen should be interpreted with caution. A fasting panel is recommended for accurate triglycerid es when trigs are >200 from a non-fasting specimen. Ordering Provider: CLIFF HILL Report Released Date/Time: Sep 07, 2022 11:24 AM Reporting Lab: [facility] [address] Performing Lab: [facility] [address] [facility] BASIC METABOLIC PANEL+MG CREATININE [MASS/VOLUM E] IN [...] Sep 07, 2022 11:24 AM Reporting Lab: [facility] [address] Performing Lab: [facility] [address] [facility] BASIC METABOLIC PANEL+MG UREA NITROGEN [MASS/VOLUM [...] Sep 07, 2022 11:24 AM Reporting Lab: [facility] [address] Performing Lab: [facility] [address] [facility] BASIC METABOLIC PANEL+MG GLUCOSE [MASS/VOLUM E] [...] Sep 07, 2022 11:24 AM Reporting Lab: [facility] [address] Performing Lab: [facility] [address] [facility] [employer] BASIC METABOLIC PANEL+MG SODIUM [MOLES/VOLU ME] IN [...] Sep 07, 2022 11:24 AM Reporting Lab: [facility] [address] Performing Lab: [facility] [address] [facility] BASIC METABOLIC PANEL+MG POTASSIUM [MOLES/VOLU ME] [...] Sep 07, 2022 11:24 AM Reporting Lab: [facility] [address] Performing Lab: [facility] [address] [facility] BASIC METABOLIC PANEL+MG CHLORIDE [MOLES/VOLU ME] IN [...] Sep 07, 2022 11:24 AM Reporting Lab: [facility] [address] Performing Lab: [facility] [address] [facility] BASIC METABOLIC PANEL+MG CARBON DIOXIDE, TOTAL [...] Sep 07, 2022 11:24 AM Reporting Lab: [facility] [address] Performing Lab: [facility] [address] [facility] BASIC METABOLIC PANEL+MG CALCIUM [MASS/VOLUM E] IN [...] Sep 07, 2022 11:24 AM Reporting Lab: [facility] [address] Performing Lab: [facility] [address] [facility] BASIC METABOLIC PANEL+MG MAGNESIUM [MASS/VOLUM E] [...] Sep 07, 2022 11:24 AM Reporting Lab: [facility] [address] Performing Lab: [facility] [address] [facility] BASIC METABOLIC PANEL+MG ANION GAP IN [...] Sep 07, 2022 11:24 AM Reporting Lab: [facility] [address] Performing Lab: [facility] [address] [facility] [employer] BASIC METABOLIC PANEL+MG GLOMERULAR FILTRATION RATE/1.73 SQ [...] Sep 07, 2022 11:24 AM Reporting Lab: [facility] [address] Performing Lab: [facility] [address] [facility] [employer] HEMOGLOBI N A1C HEMOGLOBIN A1C/HEMOGLO BIN.TOTAL IN [...] Sep 07, 2022 11:24 AM Reporting Lab: [facility] [address] Performing Lab: [facility] [address] [facility] LIPID PANEL,NON -FASTING CHOLESTEROL [MASS/VOLUM E] IN [...] Sep 07, 2022 11:24 AM Reporting Lab: [facility] [address] Performing Lab: [facility] [address] [facility] LIPID PANEL,NON -FASTING CHOLESTEROL IN HDL [...] Sep 07, 2022 11:24 AM Reporting Lab: [facility] [address] Performing Lab: [facility] [address] [facility] LIPID PANEL,NON -FASTING CHOLESTEROL IN LDL [...] Sep 07, 2022 11:24 AM Reporting Lab: [facility] [address] Performing Lab: [facility] [address] [facility] LIPID PANEL,NON -FASTING CHOLESTEROL IN VLDL [...] Sep 07, 2022 11:24 AM Reporting Lab: [facility] [address] Performing Lab: [facility] [address] [facility] LIPID PANEL,NON -FASTING CHOLESTEROL NON HDL [...] Sep 07, 2022 11:24 AM Reporting Lab: [facility] [address] Performing Lab: [facility] [address] [facility] LIPID PANEL,NON -FASTING TRIGLYCERID E [MASS/VOLUM E] [...] Sep 07, 2022 11:24 AM Reporting Lab: [facility] [address] Performing Lab: [facility] [address] [facility] CBC & DIFF LEUKOCYTES [#/VOLUME] IN BLOOD BY AUTOMATED COUNT 6.61 10*3/u L 4.0 - 11.0 09/07 Specimen Type: BLOOD Comment: Automated Differentia l Performed Ordering Provider: CLIFF HILL Report Released Date/Time: Sep 07, 2022 11:24 AM Reporting Lab: [facility] [address] Performing Lab: [facility] [address] [facility] CBC & DIFF ERYTHROCYTE S [#/VOLUME] IN BLOOD BY AUTOMATED COUNT 4.86 10*6/u L 4.6 - 6.2 09/07 Specimen Type: BLOOD Comment: Automated Differentia l Performed Ordering Provider: CLIFF HILL Report Released Date/Time: Sep 07, 2022 11:24 AM Reporting Lab: [facility] [address] Performing Lab: [facility] [address] [facility] CBC & DIFF HEMOGLOBIN [MASS/VOLUM E] IN BLOOD 14.4 g/dL 13.5 - 17.9 09/07 Specimen Type: BLOOD Comment: Automated Differentia l Performed Ordering Provider: CLIFF HILL Report Released Date/Time: Sep 07, 2022 11:24 AM Reporting Lab: [facility] [address] Performing Lab: [facility] [address] [facility] CBC & DIFF HEMATOCRIT [VOLUME FRACTION] OF BLOOD BY AUTOMATED COUNT 42.4 41 - 54 09/07 Specimen Type: BLOOD Comment: Automated Differentia l Performed Ordering Provider: CLIFF HILL Report Released Date/Time: Sep 07, 2022 11:24 AM Reporting Lab: [facility] [address] Performing Lab: [facility] [address] [facility] CBC & DIFF MCV [ENTITIC VOLUME] BY AUTOMATED COUNT 87.2 fL 80 - 100 09/07 Specimen Type: BLOOD Comment: Automated Differentia l Performed Ordering Provider: CLIFF HILL Report Released Date/Time: Sep 07, 2022 11:24 AM Reporting Lab: [facility] [address] Performing Lab: [facility] [address] [facility] CBC & DIFF MCH [ENTITIC MASS] BY AUTOMATED COUNT 29.6 pg 27 - 33 09/07 Specimen Type: BLOOD Comment: Automated Differentia l Performed Ordering Provider: CLIFF HILL Report Released Date/Time: Sep 07, 2022 11:24 AM Reporting Lab: [facility] [address] Performing Lab: [facility] [address] [facility] CBC & DIFF MCHC [MASS/VOLUM E] BY AUTOMATED COUNT 34.0 g/dL 32.0 - 37.5 09/07 Specimen Type: BLOOD Comment: Automated Differentia l Performed Ordering Provider: CLIFF HILL Report Released Date/Time: Sep 07, 2022 11:24 AM Reporting Lab: [facility] [address] Performing Lab: [facility] [address] [facility] CBC & DIFF PLATELETS [#/VOLUME] IN BLOOD BY AUTOMATED COUNT 188 10*3/u L 150 - 400 09/07 Specimen Type: BLOOD Comment: Automated Differentia l Performed Ordering Provider: CLIFF HILL Report Released Date/Time: Sep 07, 2022 11:24 AM Reporting Lab: [facility] [address] Performing Lab: [facility] [address] [facility] CBC & DIFF PLATELET MEAN VOLUME [ENTITIC VOLUME] IN BLOOD BY AUTOMATED COUNT 11.6 fL 7.4 - 10.4 09/07 H Specimen Type: BLOOD Comment: Automated Differentia l Performed Ordering Provider: CLIFF HILL Report Released Date/Time: Sep 07, 2022 11:24 AM Reporting Lab: [facility] [address] Performing Lab: [facility] [address] [facility] CBC & DIFF NEUTROPHILS /100 LEUKOCYTES IN BLOOD BY MANUAL COUNT 56.9 09/07 Specimen Type: BLOOD Comment: Automated Differentia l Performed Ordering Provider: CLIFF HILL Report Released Date/Time: Sep 07, 2022 11:24 AM Reporting Lab: [facility] [address] Performing Lab: [facility] [address] [facility] CBC & DIFF LYMPHOCYTES /100 LEUKOCYTES IN BLOOD BY MANUAL COUNT 33.1 09/07 Specimen Type: BLOOD Comment: Automated Differentia l Performed Ordering Provider: CLIFF HILL Report Released Date/Time: Sep 07, 2022 11:24 AM Reporting Lab: [facility] [address] Performing Lab: [facility] [address] [facility] CBC & DIFF MONOCYTES/1 00 LEUKOCYTES IN BLOOD BY AUTOMATED COUNT 7.9 09/07 Specimen Type: BLOOD Comment: Automated Differentia l Performed Ordering Provider: CLIFF HILL Report Released Date/Time: Sep 07, 2022 11:24 AM Reporting Lab: [facility] [address] Performing Lab: [facility] [address] [facility] CBC & DIFF EOSINOPHILS /100 LEUKOCYTES IN BLOOD BY AUTOMATED COUNT 1.1 09/07 Specimen Type: BLOOD Comment: Automated Differentia l Performed Ordering Provider: CLIFF HILL Report Released Date/Time: Sep 07, 2022 11:24 AM Reporting Lab: [facility] [address] Performing Lab: [facility] [address] [facility] CBC & DIFF BASOPHILS/1 00 LEUKOCYTES IN BLOOD BY MANUAL COUNT 0.8 09/07 Specimen Type: BLOOD Comment: Automated Differentia l Performed Ordering Provider: CLIFF HILL Report Released Date/Time: Sep 07, 2022 11:24 AM Reporting Lab: [facility] [address] Performing Lab: [facility] [address] [facility] CBC & DIFF ERYTHROCYTE DISTRIBUTIO N WIDTH [RATIO] BY AUTOMATED COUNT 13.2 11.5 - 14.5 09/07 Specimen Type: BLOOD Comment: Automated Differentia l Performed Ordering Provider: CLIFF HILL Report Released Date/Time: Sep 07, 2022 11:24 AM Reporting Lab: [facility] [address] Performing Lab: [facility] [address] [facility] CBC & DIFF LYMPHOCYTES [#/VOLUME] IN BLOOD BY AUTOMATED COUNT 2.19 10*3/u L 1.0 - 4.0 09/07 Specimen Type: BLOOD Comment: Automated Differentia l Performed Ordering Provider: CLIFF HILL Report Released Date/Time: Sep 07, 2022 11:24 AM Reporting Lab: [facility] [address] Performing Lab: [facility] [address] [facility] CBC & DIFF MONOCYTES [#/VOLUME] IN BLOOD BY AUTOMATED COUNT 0.52 10*3/u L 0.1 - 1.0 09/07 Specimen Type: BLOOD Comment: Automated Differentia l Performed Ordering Provider: CLIFF HILL Report Released Date/Time: Sep 07, 2022 11:24 AM Reporting Lab: [facility] [address] Performing Lab: [facility] [address] [facility] CBC & DIFF NEUTROPHILS [#/VOLUME] IN BLOOD BY AUTOMATED COUNT 3.77 10*3/u L 2.0 - 7.7 09/07 Specimen Type: BLOOD Comment: Automated Differentia l Performed Ordering Provider: CLIFF HILL Report Released Date/Time: Sep 07, 2022 11:24 AM Reporting Lab: [facility] [address] Performing Lab: [facility] [address] [facility] CBC & DIFF EOSINOPHILS [#/VOLUME] IN BLOOD BY AUTOMATED COUNT 0.07 10*3/u L 0 - 0.5 09/07 Specimen Type: BLOOD Comment: Automated Differentia l Performed Ordering Provider: CLIFF HILL Report Released Date/Time: Sep 07, 2022 11:24 AM Reporting Lab: [facility] [address] Performing Lab: [facility] [address] [facility] CBC & DIFF BASOPHILS [#/VOLUME] IN BLOOD BY AUTOMATED COUNT 0.05 10*3/u L 0 - 0.2 09/07 Specimen Type: BLOOD Comment: Automated Differentia l Performed Ordering Provider: CLIFF HILL Report Released Date/Time: Sep 07, 2022 11:24 AM Reporting Lab: [facility] [address] Performing Lab: [facility] [address] [facility] CBC & DIFF IG(META,MYE LO,PRO) 0.2 09/07 Specimen Type: BLOOD Comment: Automated Differentia l Performed Ordering Provider: CLIFF HILL Report Released Date/Time: Sep 07, 2022 11:24 AM Reporting Lab: [facility] [address] Performing Lab: [facility] [address] [facility] CBC & DIFF IMMATURE GRANULOCYTE S [PRESENCE] IN BLOOD BY AUTOMATED COUNT 0.01 10*3/u L 0 - 0.1 09/07 Specimen Type: BLOOD Comment: Automated Differentia l Performed Ordering Provider: CLIFF HILL Report Released Date/Time: Sep 07, 2022 11:24 AM Reporting Lab: [facility] [address] Performing Lab: [facility] [address] [facility] B 12 COBALAMIN (VITAMIN B12) [MASS/VOLUM E] IN SERUM OR PLASMA 702 pg/mL 213 - 816 09/07 Specimen Type: SERUM No comment entered. Ordering Provider: CLIFF HILL Report Released Date/Time: Sep 07, 2022 11:24 AM Reporting Lab: [facility] [address] Performing Lab: [facility] [address] [facility] ALT/SGPT ALANINE AMINOTRANSF ERASE [ENZYMATIC ACTIVITY/VO [...] Sep 07, 2022 11:24 AM Reporting Lab: [facility] [address] Performing Lab: [facility] [address] [facility] Vital Signs Combined list of inpatient [...] DC Date Status Disposition Source [place] [facility] Outpatient Encounter [id number] 08/18 [place] [facility] [place] [facility] Outpatient Encounter [id number] POP BEAVERS 09/03 [facility] OFFICE O/P EST HI 40-54 MIN [id number] Diagnos is: ICD-10- CM Z00.01 Encount er for general adult medical exam w abnorma l finding s
[place] HILL S 09/07 [facility] [place] [facility] TDAP VACCINE 7 YRS/> [place] [id number] POP BEAVERS 09/07 [place] [facility] [place] [facility] Outpatient Encounter [id number] 09/07 [facility] HC PRO PHONE CALL 21-30 MIN [id number] Diagnos is: ICD-10- CM E11.9 Type 2 diabete s mellitu s without complic ations< br/> RUBY TA 10/20 [place] [facility] [place] [facility] Outpatient Encounter [id number] 11/25 [place] [facility] [place] [facility] Outpatient Encounter [id number] 01/[facility] [place] [id number] Diagnos is: ICD-10- CM Z71.3 Dietary drapery counselor ing and surveil octavia<b r/> MACHELLE,BROOK CQUELINE N 01/21 [place] [facility] [place] [facility] Outpatient Encounter [id number] 03/01 [place] [facility] MED NUTRITION INDIV SUBSEQ [id number] Diagnos is: ICD-10- CM Z71.3 Dietary drapery counselor ing and surveil octavia<b r/> [facility]LE[facility] CQUELINE N 03/02 [facility] [place] [facility] Outpatient Encounter [id number] [facility] [place] [id number] Diagnos is: ICD-10- CM Z23 Encount er for immuniz ation<b r/> LENA TERRY 04/13 [facility] [place] [facility] Outpatient Encounter [id number] 04/21 [facility] [place] [facility] Outpatient Encounter [id number] 04/26 [facility] OFFICE O/P EST MOD 30 MIN [id number] Diagnos is: ICD-10- CM Z00.01 Encount er for general adult medical exam w abnorma l finding s
[place] S 09/19 [facility] Social History Combined list of available smoking, tobacco, and other social history from [facility] [employer] and [facility] facilities. Social History Type Response Date Comment Sourc e Tobacco smoking status [facility]TO[facility] FORMER USER 09/20/2023 [facility] of [facility] History of tobacco use [place] OME DAYS 09/03/2022 [facility] History of tobacco use CURRENT TOBACCO USER 09/14/2011 [facility]
--- OUTSIDE RECORDS SUMMARY | 2024-02-07 22:37 | XMS_ITS | Clinical Summary ---
Author Organization [facility] [facility] Address [place], [place] [address] Care Team Providers Care Paper Cleaner Name Role Phone Antoine Edgar MD Primary Care Provider [phone] Allergies No known active allergies Medications Medication [...] 114.3 kg (252 lb) 06/26/2022 3:25 PM KEG WASHER Height 190.5 cm (6' 3) 07/22/2021 11:37 AM KEG WASHER Body Mass Index 31.5 07/22/2021 11:37 AM KEG WASHER Plan of Treatment Health Maintenance Due Date [...] PCV) 08/14/2008 COVID-19 vaccine series ( season) 2024 04/08/2022, 12/21/2021, 03/24/2021 Influenza for age 65+ 02/06/2024 Medical Devices Implanted Type Area Cotton Farmer Device Identifier Shelf Expiration Date Model / Serial / Lot Bone Matrix 3.0cc Augment Injectable - [id number] Implanted:Qty: 1 on 07/22/2021 by Jayden Goldstein MD at [facility] Right: [employer] 10/04/2022 [id number] / / [id number] - [id number] Implanted:Qty: 1 on 07/22/2021 by Jayden Goldstein MD at [facility] Right: [employer] 02/02/2022 [id number] / / [id number] Description:OSSIO FIBER COMP RESSION SCREW 4.3X30MM Explanted Type Area Cotton Farmer Device Identifier Shelf Expiration Date Model / Serial / Lot Wire Kirs .[id number] Smoothx6/Pk Depuy/Garry - [id number] Explanted:Qty: 1 on 07/22/2021 at [facility] Right: Foot [employer] / / Description:[id number] Advance Directives * Full Code (Latest Code Status on File) Date Activated Date Inactivated Comments 07/22/2021 11:01 AM 07/22/2021 9:09 PM Question Answer Comments Code Status Discussion: Per Existing OrderDiscus sed Care Teams Paper Cleaner Relationship Specialty Start Date End Date Antoine Edgar MD PCP - General Family Practice 12/05/20
[2024-02-07 23:00] LABS: Lactate* 1.7 mmol/L (0.5-1.9)
[2024-02-07 23:04] LABS: Basophils Absolute Auto 0.01 K/uL (0.00-0.30); Basophils Percent Auto 0.2 % (0.0-3.0); Eosinophils Absolute Auto 0.02 K/uL (0.00-0.50); Eosinophils Percent Auto 0.4 % (0.0-7.0); Hematocrit 38.3 % (37.0-53.0); Hemoglobin* 12.7 gm/dL (13.5-17.5); Immature Granulocytes Abs Auto 0.04 K/uL (0.00-0.30); Immature Granulocytes Pct Auto 0.8 %; Mean Corpuscular HGB Conc 33 gm/dL (32-36); Mean Corpuscular Hemoglobin 29 pg (26-34); Mean Corpuscular Volume 89 fL (80-100); Monocytes Percent Auto 14.2 % (0.0-11.0); Neutrophils Absolute Auto 3.47 K/uL (1.7-7.0); Neutrophils Percent Auto 69.4 % (42.0-72.0); Platelet Count* 132 K/uL (140-440); RDW Coefficient of Variation % 13.6 % (11.5-15.5); Red Blood Count 4.33 m/uL (4.30-5.90)
[2024-02-07 23:14] LABS: Slide Review Reflex No
[2024-02-07 23:20] LABS: Albumin* 4.3 g/dL (3.3-5.0); Chloride* 98 mmol/L (96-114); Sodium* 134 mmol/L (135-149)
[2024-02-07 23:21] LABS: Potassium* 3.9 mmol/L (3.6-5.1)
[2024-02-07 23:23] LABS: Alanine Aminotransferase* 91 U/L (4-50); Alkaline Phosphatase* 47 U/L (40-150); Anion Gap 7 mEq/L (7-15); Aspartate Amino Transferase* 81 U/L (12-35); Bilirubin Total* 0.5 mg/dL (0.1-1.5); Blood Urea Nitrogen* 30 mg/dL (7-30); Calcium* 8.6 mg/dL (8.4-10.6); Carbon Dioxide* 29 mmol/L (20-32); Creatinine* 1.5 mg/dL (0.5-1.5); Est. Creatinine Clearance* 45.67; Estimated Glomerular Filt Rate 47 ml/min; Glucose* 175 mg/dL (60-115); Lipase* 109 U/L (23-300)
[2024-02-07 23:36] LABS: Troponin I* < 0.01 ng/mL (0.01-0.04)
[2024-02-08] VITALS (18 sets, daily range): BP systolic 122–162; BP diastolic 63–87; PULSE 55–67; RESP 18; TEMP 36.8–37.1; O2SAT 91–97; BMI 31.7
[2024-02-08] MEDS: 0.9 % SODIUM CHLORIDE 1000 ml 1,000 ML IV (01:19)
--- NOTE | 2024-02-08 02:32 | W.PM.TELEH&P ---
Telehealth- H&P: HPI History of Present Illness Date Seen: 02/08/24 Chief complaint: Diarrhea Narrative: Ld Javier [facility] is seen as an Interactive Telehealth visit. 78-year-old male with a past medical history significant for hypertension hyperlipidemia and BPH on Flomax who presents the hospital with syncope and fall. Patient was recently started feeling ill late Wednesday night. He felt like he was having a viral illness. He became very weak throughout the day and Wednesday essentially remained in bed. His weakness continued throughout the next day into Wednesday and Wednesday. He developed nausea and vomiting and diarrhea on Wednesday. He had 3 episodes. He is oral intake was limited. He was unable to eat and/or drink. On Wednesday evening he tried to get up off of bed, stood by the side of the bed and became weak lightheaded. He then was found on the floor. He did not hit his head. was at bedside. EMS was contacted. Patient was brought to the ER. In the emergency room, this patient's CBC was essentially stable with no signs of any acute blood loss or markedly elevated white count. Sodium was 134, AST ALT mildly elevated. Troponin is negative. SARS Cov [address] was [address] Patient underwent CT of the head, CTA of the chest, CT abdomen pelvis. CT of the head was negative. CT of the chest showed no evidence of PE, mild emphysema. Abdominal CT showed no acute abdominal abnormality. He did have some inguinal hernias that were containing some sigmoid colon but no evidence of any gross abnormality. Review of Systems Const: Reports: chills, fatigue and malaise; Denies: fever ENMT: Denies: neck pain Cardio: Reports: shortness of breath with exertion; Denies: chest pain Resp: Reports: shortness of breath GI: Reports: nausea, vomiting and diarrhea; Denies: abdominal pain, constipation, bloating or belching : Denies: painful urination Musculo: Reports: back pain; Denies: neck pain or extremity pain Neuro: Denies: headache, confusion or slurred speech Psych: Denies: anxiety Endo: Reports: fatigue; Denies: excessive urination Allergy/Immuno: Denies: hives PFSH [facility] Medical History Health care directive on file (07/29/21) ?Z78.9 - Other specified health status (ICD-10) Surgical History Status post uvulopalatopharyngoplasty ?Z98.890 - Other specified postprocedural states (ICD-10) History of umbilical hernia repair ?Z98.890 - Other specified postprocedural states (ICD-10) ?Z87.19 - Personal history of other diseases of the digestive system (ICD-10) History of shoulder surgery ?Z98.890 - Other specified postprocedural states (ICD-10) Social History (Updated 12/22/23 @ 13:14 by Abdulkadir Martins ~ [facility]) What is your current living situation?: I presently have a place to live Problems where you live: no known problems Problems where you live details: N/A In the past 12 months, utilities in danger of being shut off: no In past 12 months, lack of transportation kept you from medical appts, meetings, work, or getting things needed for daily living: no In the past 12 mos, have been you worried that your food would run out before you had money to buy more?: never true In the past 12 mos, the food you bought just didn't last and you didn't have money to buy more?: never true Highest level of school completed/degree received: Associate degree: occupational, technical, vocational program Smoking Status: Former smoker Second hand tobacco smoke exposure: Yes How often do you have a drink containing alcohol: 2-4 times a month Alcohol type: beer How many standard drinks containing alcohol do you have on a typical day: 1 or 2 How often do you have six or more drinks on one occasion: Never AUDIT-C Alcohol total score: 2 Non-prescribed substance use: denies use Caffeine: Yes How often does anyone, including family, friends and others, physically hurt you: never How often does anyone, including family, friends and others, insult or talk down to you: never How often does anyone, including family, friends and others, threaten you with harm: never How often does anyone, including family, friends and others, scream or curse at you: never Little interest or pleasure in doing things: not at all Feeling down, depressed, or hopeless: not at all service: Yes Meds Home Medications and Allergies Home Medications ?Medication ?Instructions ?Recorded ?Confirmed ?Type magnesium oxide 500 mg PO BID 01/12/22 12/29/23 History Allergies Allergy/AdvReac Type Severity Reaction Status Date / Time No Known Allergies Allergy Verified 02/07/24 21:29 Exam Narrative Exam Narrative: Physical Exam GENERAL: ?vital signs reviewed, well developed and nourished, in no distress HEENT: pupils are equal round and reactive to light, extraocular movements are grossly within normal limits and oral mucosa is moist. NECK: Supple without lymphadenopathy or thyromegaly according to nursing staff examination observation HEART: Regular rate and rhythm without any rubs, murmurs, or gallops. LUNGS: Clear to auscultation bilaterally with good air movement throughout ABDOMEN: Observation from nurse assisted exam, abdomen appears distended, but essentially non tender. Nursing did perform deep palpation and the patient had mild symptoms of RUQ pain. EXTREMITIES: Strength and sensation is observed to be grossly within normal limits in the upper and lower extremities.? No focal strength deficit is observed. SKIN:? Observed warm and dry with color normal Const Vital Signs, click to edit/add: Vital Signs - 24 hr 02/07/24 21:24 02/07/24 21:26 02/07/24 21:27 Temperature 98.0 F Pulse Rate 56 L 63 Pulse Rate [Right Pulse Oximeter] 60 Respiratory Rate 16 Blood Pressure 119/62 Blood Pressure [Left Arm] Blood Pressure [Left Upper Arm] 119/62 Pulse Oximetry 98 95 94 Oxygen Delivery Method Room Air 02/07/24 21:30 02/07/24 21:32 02/07/24 21:32 Temperature Pulse Rate 62 60 60 Pulse Rate [Right Pulse Oximeter] Respiratory Rate Blood Pressure 108/61 108/61 Blood Pressure [Left Arm] Blood Pressure [Left Upper Arm] Pulse Oximetry 92 90 90 Oxygen Delivery Method 02/07/24 21:45 02/07/24 21:47 02/07/24 22:00 Temperature Pulse Rate 61 61 61 Pulse Rate [Right Pulse Oximeter] Respiratory Rate Blood Pressure 118/61 Blood Pressure [Left Arm] Blood Pressure [Left Upper Arm] Pulse Oximetry 94 94 94 Oxygen Delivery Method 02/07/24 22:02 02/07/24 22:15 02/07/24 22:17 Temperature Pulse Rate 63 63 62 Pulse Rate [Right Pulse Oximeter] Respiratory Rate Blood Pressure 116/71 137/66 Blood Pressure [Left Arm] Blood Pressure [Left Upper Arm] Pulse Oximetry 96 95 96 Oxygen Delivery Method 02/07/24 22:30 02/07/24 22:32 02/07/24 22:45 Temperature Pulse Rate 60 59 L 59 L Pulse Rate [Right Pulse Oximeter] Respiratory Rate Blood Pressure 132/67 Blood Pressure [Left Arm] Blood Pressure [Left Upper Arm] Pulse Oximetry 94 95 96 Oxygen Delivery Method 02/07/24 22:47 02/07/24 23:00 02/07/24 23:02 Temperature Pulse Rate 60 55 L 56 L Pulse Rate [Right Pulse Oximeter] Respiratory Rate Blood Pressure 131/65 130/68 Blood Pressure [Left Arm] Blood Pressure [Left Upper Arm] Pulse Oximetry 95 95 95 Oxygen Delivery Method 02/07/24 23:15 02/07/24 23:17 02/07/24 23:30 Temperature Pulse Rate 56 L 57 L 55 L Pulse Rate [Right Pulse Oximeter] Respiratory Rate Blood Pressure 123/62 Blood Pressure [Left Arm] Blood Pressure [Left Upper Arm] Pulse Oximetry 88 96 90 Oxygen Delivery Method 02/07/24 23:32 02/08/24 00:03 02/08/24 00:04 Temperature Pulse Rate 55 L 63 60 Pulse Rate [Right Pulse Oximeter] Respiratory Rate Blood Pressure 119/64 145/72 H Blood Pressure [Left Arm] Blood Pressure [Left Upper Arm] Pulse Oximetry 94 95 95 Oxygen Delivery Method 02/08/24 00:04 02/08/24 00:15 02/08/24 00:17 Temperature Pulse Rate 60 55 L 57 L Pulse Rate [Right Pulse Oximeter] Respiratory Rate Blood Pressure 145/72 H 127/70 Blood Pressure [Left Arm] Blood Pressure [Left Upper Arm] Pulse Oximetry 95 94 94 Oxygen Delivery Method 02/08/24 00:30 02/08/24 00:32 02/08/24 00:45 Temperature Pulse Rate 58 L 57 L 56 L Pulse Rate [Right Pulse Oximeter] Respiratory Rate Blood Pressure 130/68 Blood Pressure [Left Arm] Blood Pressure [Left Upper Arm] Pulse Oximetry 92 95 94 Oxygen Delivery Method 02/08/24 00:47 02/08/24 00:57 02/08/24 01:00 Temperature Pulse Rate 60 65 59 L Pulse Rate [Right Pulse Oximeter] Respiratory Rate Blood Pressure 122/63 162/68 H Blood Pressure [Left Arm] Blood Pressure [Left Upper Arm] Pulse Oximetry 95 96 97 Oxygen Delivery Method 02/08/24 01:02 02/08/24 01:02 02/08/24 01:02 Temperature Pulse Rate 61 61 61 Pulse Rate [Right Pulse Oximeter] Respiratory Rate Blood Pressure 124/77 124/77 124/77 Blood Pressure [Left Arm] Blood Pressure [Left Upper Arm] Pulse Oximetry 94 94 94 Oxygen Delivery Method 02/08/24 01:15 02/08/24 01:36 Temperature 98.2 F Pulse Rate 57 L Pulse Rate [Right Pulse Oximeter] 64 Respiratory Rate 18 Blood Pressure Blood Pressure [Left Arm] 145/72 H Blood Pressure [Left Upper Arm] Pulse Oximetry 91 96 Oxygen Delivery Method Room Air Hospitalist - H&P: Result Labs Labs: Short CBC 02/07/24 Range/Units 22:50 WBC 5.00 (4.50-11.00) K/uL Hgb 12.7 L (13.5-17.5) gm/dL Hct 38.3 (37.0-53.0) % Plt Count 132 L (140-440) K/uL BMP 02/07/24 22:50 Sodium 134 L Potassium 3.9 Chloride 98 Carbon Dioxide 29 BUN 30 Creatinine 1.5 Glucose 175 H Calcium 8.6 Cardiac Enzymes 02/07/24 Range/Units 22:50 Troponin I < 0.01 L (0.01-0.04) ng/mL Liver Function 02/07/24 Range/Units 22:50 Total Bilirubin 0.5 (0.1-1.5) mg/dL AST 81 H (12-35) U/L ALT 91 H (4-50) U/L Alkaline Phosphatase 47 (40-150) U/L Albumin 4.3 (3.3-5.0) g/dL Assessment and Plan Assessment and plan (1) Diarrhea: Status: Acute (2) Syncope: Status: Acute (3) Weakness: Status: Acute (4) COVID: Status: Acute (5) Hypertension: Status: Acute (6) Diabetes 1.5, managed as type 2: Status: Acute (7) Hyperlipidemia: Status: Acute (8) BPH (benign prostatic hyperplasia): Status: Acute (9) GERD (gastroesophageal reflux disease): Status: Acute Plan It appears that this patient's syncopal episode is most likely exacerbated by 3 factors: This patient has been having nausea vomiting and diarrhea over the past 24 hours. However over 72 hours his oral intake has been limited. In addition he takes chlorthalidone and lisinopril which have likely been contributing to the diuresis. In addition he has COVID-19 and has been feeling increasingly weak. To top it off, he takes 0.4 mg of Flomax which could have contributed to orthostasis. Essentially feel that all these factors combined likely contributed to his syncopal episode. However I will keep him on telemetry and order an echocardiogram. I am holding the Flomax and holding the chlorthalidone. His blood pressures are stable so he may need his lisinopril in the morning. I will continue IV fluids for now. In regards to the patient's weakness, I am consulting PT and OT. He will place on the regular diet. Hypertension: I will be holding his chlorthalidone for now, but he will continue his lisinopril as his blood pressures are on the more elevated side. I did note that this patient had some mild tenderness on physical exam. He had pain in the right upper quadrant. I did review his labs and it showed mildly elevated liver enzymes. Given his nausea vomiting I think it was reasonable to have a right upper quadrant ultrasound ordered. Total Time Spent Total Time Spent: Telehealth Visit Today's History and Physical is provided via interactive telehealth by Dr. Wes Zaragoza MD. Patient is located at [facility]. Provider is located at [facility]. Nursing staff assisted with the patient's examination. The visit being done today meets criteria for a telehealth visit and the patient or patient's parent and/or gaurdian is aware the visit is a telehealth visit. Camera Start Time 2:00 AM Camera End Time 2:20 AM Telehealth: Statement Statement Telehealth Visit: Today's History and Physical is provided via interactive telehealth by Wes Zaragoza MD.? Patient is located at [facility].? Provider is located at [facility].? Nursing staff assisted with the patient's exam. The visit being done today meets criteria for a telehealth visit and the patient or patient?s parent/guardian is aware the visit is a telehealth visit.
--- NOTE | 2024-02-08 02:38 | CRLHL7_ITS ---
For Patients: As a result of the Century Cures Act, medical imaging exams and procedure reports are released immediately into your electronic medical record. You may view this report before your referring provider. If you have questions, please contact your health care provider. INDICATION: Right upper quadrant pain, mildly elevated LFT COMPARISON: None. TECHNIQUE: Vaughn-scale and color Doppler ultrasound of the right upper quadrant. FINDINGS: Gallbladder and bile ducts: The gallbladder is normal. No stones or sludge. Normal wall thickness. No pericholecystic fluid. Lozano sign not reported. The extrahepatic bile duct is not discretely seen. Incidentally noted severe hepatic steatosis with extremely echogenic liver parenchyma and very limited through transmission. IMPRESSION: 1. Severely fatty liver. 2. Normal gallbladder. Dictated by Rosalia Lane MD @ 02/08/2024 7:12:53 AM (Electronically Signed)
[2024-02-08] MEDS: 0.9 % SODIUM CHLORIDE 1000 ml 1,000 ML 75 ML IV (02:58)
[2024-02-08] MEDS: SODIUM CHLORIDE 0.9 % (FLUSH) 10 ML SYRINGE 5 ML IVF (02:58)
[2024-02-08] MEDS: ROPINIROLE HCL 1 MG TABLET PO (03:05)
[2024-02-08 03:06] LABS: Appearance Urine Clear (Clear); Bilirubin Urine Negative (Negative); Blood Urine Negative (Negative); Color Urine Yellow (Yellow); Glucose Urine Negative (Negative); Ketones Urine Negative (Negative); Leukocyte Esterase Urine Negative (Negative); Nitrite Urine Negative (Negative); Protein Urine Negative (Negative); Specific Gravity Urine <= 1.005 (1.000-1.030); Urobilinogen Urine 0.2 (0.2-1.0); pH Urine 5.5 (5.0-8.5)
[2024-02-08 03:17] LABS: RBC Urine 0-2 (0-2); Squamous Epithelial Cell Urine Few (None-Few); WBC Urine 0-2 (0-5)
--- NOTE | 2024-02-08 06:49 | PC.NURSE ---
End of shift note: Pt alert & oriented x 4 and able to make needs known. He transfers/ambulates independently in room. VSS and pt has been afebrile. Pt on RA. He reports he has had a dry nonproductive cough and sore throat noted at home along with slight headache at home. IVs to R AC and L hand patent with NS running per order. Pt on telemetry with NSR noted. He has been denying pain at rest when asked. He did have mild pain noted to RUQ with deep palpation during [facility] telehealth MD visit/assessment. LEROY. Pt states he does note shortness of breath upon exertion at home when going up stairs. He denies chest pain when asked. Pt has been continent of bladder using bathroom.
[2024-02-08] MEDS: lisinopriL 20 MG TABLET PO (09:35)
[2024-02-08] MEDS: OMEPRAZOLE 20 MG CAPSULE DR 40 MG PO (09:36)
[2024-02-08] MEDS: allopurinoL 100 MG TABLET PO (09:36)
--- NOTE | 2024-02-08 11:28 | REH.PT ---
Therapy orders discontinued per Mary Nguyen, pt is up Ind in room at baseline for mobility.
--- NOTE | 2024-02-08 13:20 | PM.DS1 ---
DS: Providers Provider Date Seen: 02/08/24 Date of admission: 02/08/24 01:16 Primary care physician: Jose Torrez MD Admitting Clinician: Wes Zaragoza MD Attending Physician on discharge: Mary Alexis [facility] [place] [facility] Date of Discharge: 02/08/24 DS: Diagnosis Discharge Diagnosis (1) Diarrhea: Status: Resolved Problem details: X3 episodes prior to admission. Suspected in setting of acute COVID infection. CT abdomen pelvis without acute findings. Ultrasound of the gallbladder shows severe fatty liver (previously documented). No further stools prior to discharge. (2) Syncope: Status: Acute Problem details: With positional change, suspected in setting of acute COVID infection, poor oral intake, diarrhea. CT head without acute findings. Echocardiogram completed prior to discharge, preliminarily reported as left ventricular hypertrophy with normal LV function, trace tricuspid regurgitation, RV within normal limits. Final read pending, follow-up with PCP. (3) Weakness: Status: Acute Problem details: With fall, syncopal episode. In setting of acute COVID infection. Improving prior to discharge. Independently active and completing ADLs in his own room. PT/OT deemed not necessary. (4) COVID: Status: Acute Problem details: Symptom onset 02/04/2024. Positive test 02/08/24. Will start Paxlovid following discharge today. Renally adjusted. Hold statin and tamsulosin while taking Paxlovid. (5) Hypertension: Status: Acute Problem details: Continue home medications (6) Diabetes 1.5, managed as type 2: Status: Acute Problem details: Continue home medications (7) Hyperlipidemia: Status: Acute Problem details: Hold statin while taking Paxlovid (8) BPH (benign prostatic hyperplasia): Status: Acute Problem details: Hold tamsulosin will taking Paxlovid (9) GERD (gastroesophageal reflux disease): Status: Acute Problem details: Continue PPI (10) Steatosis of liver: Status: Acute Problem details: Gallbladder ultrasound 02/08/2024 shows severe fatty liver. Further follow-up and management per PCP DS: Summary Hospital Course Hospital Course: [age] year old male admitted to the medical floor for further workup acute COVID. Course of care and details as noted above. Patient noted to significantly improved, independent with ADLs, improved appetite, echocardiogram completed given presyncopal episode. Discharged to home to complete course of Paxlovid. Outpatient follow-up with PCP Remainder of chronic medical comorbidities were monitored and managed with home medications. Status at Discharge Functional status at discharge: independent ambulation Overall status at discharge: patient is back to baseline Time Spent with Patient Time attestation: Total time spent providing and/or coordinating discharge services: Time spent: Greater than 30 minutes Exam Narrative: Exam Narrative: PHYSICAL EXAM General: Pleasant, conversant, NAD Cardiovascular: RRR Pulmonary: No dyspnea Neurological: Alert, answering questions appropriately Skin: Warm, dry. Const: Vital Signs, click to edit/add: Vital Signs - 24 hr 02/07/24 21:24 02/07/24 21:26 02/07/24 21:27 Temperature 98.0 F Pulse Rate 56 L 63 Pulse Rate [Right Pulse Oximeter] 60 Respiratory Rate 16 Blood Pressure 119/62 Blood Pressure [Le ft Arm] Blood Pressure [Le ft Upper Arm] 119/62 Blood Pressure [Ri ght Arm] Pulse Oximetry 98 95 94 [facility] 02/07/24 21:30 02/07/24 21:32 02/07/24 21:32 Temperature Pulse Rate 62 60 60 Pulse Rate [Right Pulse Oximeter] Respiratory Rate Blood Pressure 108/61 108/61 Blood Pressure [Le ft Arm] Blood Pressure [Le ft Upper Arm] Blood Pressure [Ri ght Arm] Pulse Oximetry 92 90 90 Oxygen Delivery Me thod 02/07/24 21:45 02/07/24 21:47 02/07/24 22:00 Temperature Pulse Rate 61 61 61 Pulse Rate [Right Pulse Oximeter] Respiratory Rate Blood Pressure 118/61 Blood Pressure [Le ft Arm] Blood Pressure [Le ft Upper Arm] Blood Pressure [Ri ght Arm] Pulse Oximetry 94 94 94 Oxygen Delivery Me thod 02/07/24 22:02 02/07/24 22:15 02/07/24 22:17 Temperature Pulse Rate 63 63 62 Pulse Rate [Right Pulse Oximeter] Respiratory Rate Blood Pressure 116/71 137/66 Blood Pressure [Le ft Arm] Blood Pressure [Le ft Upper Arm] Blood Pressure [Ri ght Arm] Pulse Oximetry 96 95 96 Oxygen Delivery Me thod 02/07/24 22:30 02/07/24 22:32 02/07/24 22:45 Temperature Pulse Rate 60 59 L 59 L Pulse Rate [Right Pulse Oximeter] Respiratory Rate Blood Pressure 132/67 Blood Pressure [Le ft Arm] Blood Pressure [Le ft Upper Arm] Blood Pressure [Ri ght Arm] Pulse Oximetry 94 95 96 Oxygen Delivery Ar thod 02/07/24 22:47 02/07/24 23:00 02/07/24 23:02 Temperature Pulse Rate 60 55 L 56 L Pulse Rate [Right Pulse Oximeter] Respiratory Rate Blood Pressure 131/65 130/68 Blood Pressure [Le ft Arm] Blood Pressure [Le ft Upper Arm] Blood Pressure [Ri ght Arm] Pulse Oximetry 95 95 95 Oxygen Delivery Ar thod 02/07/24 23:15 02/07/24 23:17 02/07/24 23:30 Temperature Pulse Rate 56 L 57 L 55 L Pulse Rate [Right Pulse Oximeter] Respiratory Rate Blood Pressure 123/62 Blood Pressure [Le ft Arm] Blood Pressure [Le ft Upper Arm] Blood Pressure [Ri ght Arm] Pulse Oximetry 88 96 90 [facility] 02/07/24 23:32 02/08/24 00:03 02/08/24 00:04 Temperature Pulse Rate 55 L 63 60 Pulse Rate [Right Pulse Oximeter] Respiratory Rate Blood Pressure 119/64 145/72 H Blood Pressure [Le ft Arm] Blood Pressure [Le ft Upper Arm] Blood Pressure [Ri ght Arm] Pulse Oximetry 94 95 95 Oxygen Delivery Ar thod 02/08/24 00:04 02/08/24 00:15 02/08/24 00:17 Temperature Pulse Rate 60 55 L 57 L Pulse Rate [Right Pulse Oximeter] Respiratory Rate Blood Pressure 145/72 H 127/70 Blood Pressure [Le ft Arm] Blood Pressure [Le ft Upper Arm] Blood Pressure [Ri ght Arm] Pulse Oximetry 95 94 94 Oxygen Delivery Ar thod 02/08/24 00:30 02/08/24 00:32 02/08/24 00:45 Temperature Pulse Rate 58 L 57 L 56 L Pulse Rate [Right Pulse Oximeter] Respiratory Rate Blood Pressure 130/68 Blood Pressure [Le ft Arm] Blood Pressure [Le ft Upper Arm] Blood Pressure [Ri ght Arm] Pulse Oximetry 92 95 94 Oxygen Delivery Ar thod 02/08/24 00:47 02/08/24 00:57 02/08/24 01:00 Temperature Pulse Rate 60 65 59 L Pulse Rate [Right Pulse Oximeter] Respiratory Rate Blood Pressure 122/63 162/68 H Blood Pressure [Le ft Arm] Blood Pressure [Le ft Upper Arm] Blood Pressure [Ri ght Arm] Pulse Oximetry 95 96 97 [facility] 02/08/24 01:02 02/08/24 01:02 02/08/24 01:02 Temperature Pulse Rate 61 61 61 Pulse Rate [Right Pulse Oximeter] Respiratory Rate Blood Pressure 124/77 124/77 124/77 Blood Pressure [Le ft Arm] Blood Pressure [Le ft Upper Arm] Blood Pressure [Ri ght Arm] Pulse Oximetry 94 94 94 [facility] 02/08/24 01:15 02/08/24 01:36 02/08/24 01:36 Temperature 98.2 F Pulse Rate 57 L Pulse Rate [Right Pulse Oximeter] 64 Respiratory Rate 18 18 Blood Pressure Blood Pressure [Le ft Arm] 145/72 H Blood Pressure [Le ft Upper Arm] Blood Pressure [Ri ght Arm] Pulse Oximetry 91 96 96 [facility] Room Air 02/08/24 02:36 02/08/24 03:00 02/08/24 07:36 Temperature 98.2 F Pulse Rate 67 63 Pulse Rate [Right Pulse Oximeter] 64 Respiratory Rate 18 Blood Pressure Blood Pressure [Le ft Arm] 145/72 H Blood Pressure [Le ft Upper Arm] Blood Pressure [Ri ght Arm] Pulse Oximetry 96 [facility] 02/08/24 09:31 02/08/24 12:52 Temperature 98.5 F 98.8 F Pulse Rate Pulse Rate [Right Pulse Oximeter] 63 58 L Respiratory Rate 18 18 Blood Pressure Blood Pressure [Le ft Arm] Blood Pressure [Le ft Upper Arm] Blood Pressure [Ri ght Arm] 139/82 129/87 Pulse Oximetry 94 97 [facility] Room Air DS: Data Data Completed and Pending Labs on day of discharge: Labs from last 24 hours 02/08/24 02/07/24 02/07/24 02:55 22:50 21:27 WBC 5.00 RBC 4.33 Hgb 12.7 L Hct 38.3 MCV 89 MCH 29 MCHC 33 RDW Coeff of Mayuri 13.6 Plt Count 132 L Neut % (Auto) 69.4 Lymph % (Auto) 15.0 L [place] % (Auto) 14.2 H Eos % (Auto) 0.4 Baso % (Auto) 0.2 Neut # (Auto) 3.47 Lymph # (Auto) 0.80 L [place] # (Auto) 0.70 Eos # (Auto) 0.02 Baso # (Auto) 0.01 Abs Immat Gran (auto) 0.04 Imm/Tot Granulo (auto) 0.8 Sodium 134 L Potassium 3.9 Chloride 98 Carbon Dioxide 29 Anion Gap 7 BUN 30 Creatinine 1.5 Estimated Creat Clear 45.67 Estimated GFR 47 Glucose 175 H Lactate 1.7 Calcium 8.6 Total Bilirubin 0.5 AST 81 H ALT 91 H Alkaline Phosphatase 47 Troponin I < 0.01 L Total Protein 7.0 Albumin 4.3 Lipase 109 Urine Color Yellow Urine Appearance Clear Urine pH 5.5 Ur Specific [place] <= 1.005 Urine Protein Negative Urine Glucose (UA) Negative Urine Ketones Negative Urine Blood Negative Urine Nitrite Negative Urine Bilirubin Negative Urine Urobilinogen 0.2 Ur Leukocyte Esterase Negative Urine RBC 0-2 Urine WBC 0-2 Ur Squamous Epith Cells Few Urine Bacteria None SARS-CoV-2 (PCR) POSITIVE SARS-CoV-2 A Influenza Type A (PCR) Negative PCR FLU A Influenza Type B (PCR) Negative PCR FLU B RSV (PCR) Negative PCR RSV Imaging Gallbladder ultrasound: Attestation: I have reviewed the pertinent imaging results. Radiologist's impression: Vaughn-scale and color Doppler ultrasound of the right upper quadrant. FINDINGS: Gallbladder and bile ducts: The gallbladder is normal. No stones or sludge. Normal wall thickness. No pericholecystic fluid. Lozano sign not reported. The extrahepatic bile duct is not discretely seen. Incidentally noted severe hepatic steatosis with extremely echogenic liver parenchyma and very limited through transmission. IMPRESSION: 1. Severely fatty liver. 2. Normal gallbladder. CT scan - head: Attestation: I have reviewed the pertinent imaging results. Radiologist's impression: CSF spaces: Proportionate prominence of the ventricles and sulci, reflecting mild generalized cerebral volume loss. Brain parenchyma: The vaughn-white differentiation is maintained. Patchy white matter low attenuation changes, nonspecific but likely reflecting chronic small vessel ischemic disease. No sign of mass, hemorrhage, or midline shift. Skull base and calvarium: Mild scattered mucosal thickening in the ethmoid, sphenoid, and maxillary sinuses. Mastoid air cells are clear. The visualized orbits are grossly unremarkable. No skull fractures. IMPRESSION: No acute intracranial abnormality. CTA chest: Attestation: I have reviewed the pertinent imaging results. Radiologist's impression: CT chest PE was acquired with 95 cc Isovue 370 IV contrast. COMPARISON: CT chest 08/21/2019. FINDINGS: Heart and vasculature: Contrast opacification of the pulmonary arterial tree is adequate. No sign of pulmonary embolism. Heart size is normal. Thoracic aorta and pulmonary artery are normal in caliber. Mild coronary artery calcifications. Lungs and pleura: Mild emphysema. No acute infiltrates. Stable few sub 6 mm pulmonary nodules, considered benign given small size and long-term stability. No new pulmonary nodules. No pleural effusions, pleural thickening, or pneumothorax. Lymph nodes/mediastinum: No mediastinal, hilar, or axillary adenopathy. Thyroid gland is unremarkable. Chest wall: No masses. Upper abdomen: Please refer to separate concurrent CT abdomen and pelvis. Bones: Degenerative changes. IMPRESSION: No evidence of pulmonary embolism or acute pulmonary process. CT scan - abdomen: Attestation: I have reviewed the pertinent imaging results. Radiologist's impression: FINDINGS: Lower chest: Please refer to separate concurrent CT chest PE. Liver: Mild hepatic steatosis. No suspicious masses. Gallbladder and bile ducts: Unremarkable. No stones or inflammation. No biliary ductal dilatation. Spleen: Unremarkable. Normal in size. No masses. Adrenal glands: Unremarkable. No nodules. Pancreas: Unremarkable. No mass or inflammation. Kidneys: Bilateral renal cysts. Subcentimeter hypodense foci are too small to accurately characterize. No stones or hydronephrosis. GI tract: Tiny hiatal hernia. Colonic diverticulosis without evidence of diverticulitis. No evidence of obstruction. Normal appendix. Lymph nodes: No lymphadenopathy. Vasculature: Moderate scattered atherosclerotic calcifications. Abdominal aorta is normal in caliber. Omentum/Peritoneum/Abdominal Wall: No free air or significant free fluid. Increased size of the bilateral inguinal hernias, now containing nondistended sigmoid colon in the left inguinal hernia. Pelvis: Unremarkable. Bones: Degenerative changes. IMPRESSION: 1. No acute abdominal or pelvic abnormality. 2. Increased size of the bilateral inguinal hernias, now containing nondistended sigmoid colon in the left inguinal hernia. 3. Colonic diverticulosis without evidence of diverticulitis. 4. Mild hepatic steatosis. Discharge Plan Discharge Disposition: Home, Self-Care Date of Admission: 02/08/24 01:16 Attending Provider on Discharge: Mary Alexis Primary Care Provider: Jose Torrez Condition: Improved Anticipated Discharge Date/Time: 02/08/24 13:16 Discharge Medications: New Paxlovid 150-100 mg tablets,dose pack See Rx Instructions .ROUTE .COMPLEX Qty: 20 0RF Rx Instructions: orally per package directions Continued magnesium oxide 500 mg tablet 500 mg PO BID ropinirole 1 mg tablet 1 mg PO HS lisinopril 20 mg tablet 20 mg PO DAILY chlorthalidone 25 mg tablet 25 mg PO DAILY allopurinol 100 mg tablet 100 mg PO DAILY omeprazole 40 mg capsule,delayed release(DR/EC) 40 mg PO DAILY metformin 500 mg tablet extended release 24 hr 1,000 mg PO DAILY Held tamsulosin 0.4 mg capsule 0.4 mg PO DAILY Hold Instructions: Resume on 02/13/24. DO NOT TAKE UNTIL YOU HAVE FINISHED COVID rosuvastatin 20 mg tablet 20 mg PO DAILY Hold Instructions: Resume on 02/13/24. DO NOT TAKE UNTIL YOU HAVE FINISHED PAXLOVID Discharge Orders: Discharge Order (Routine); Ordered 02/08/24 Ordered By: Mary Alexis Patient Education: COVID-19 (Coronavirus Disease 2019) (GEN) Additional Instructions: DO NOT TAKE ROSUVASTATIN OR TAMSULOSIN WHILE TAKING PAXLOVID PAXLOVID - TAKE ONE TABLET OF EACH MEDICATION TWICE DAILY. Nirmatrelvir 150 mg (only one pill, not two) and ritonavir 100 mg taken together twice daily Activity Level: Activity as Tolerated Discharge Diet: Diabetic Follow Up Appointments: Jose Torrez MD [Primary Care Provider] - (Post hospital follow up 7-10 days. PCP follow-up for fatty liver findings) Forms: [employer] [facility] Info Instructions
--- NOTE | 2024-02-08 15:49 | PC.NURSE ---
Discharge: The patient discharged home with his this afternoon. No O2 issues, VSS on RA, no reports of pain, and dry intermittent cough. Educated on symptoms to come back in for or call the clinic for. All discharge information was given and educated on. Miri RICHARDSON BSN
--- NOTE | 2024-02-08 16:30 | PC.NURSE ---
Prescription called in to [facility] as [facility] did not have in stock. Instructed on paper and verbally for patient to hold Flomax and Rostuvastatin for EIGHT days (3 days after Paxlovid is complete).
--- NOTE | 2024-02-08 19:36 | PC.NURSE ---
Unable to leave a voicemail for current pharmacy as they are closed and do not have a voicemail. Will have morning charge nurse call and cancel Paxlovid through mail order.
== END 2024-02-08 15:36 | disposition home or self-care (01) ==
LOC: ED 22:35 → MEDSURG 02-08 01:16
PROVIDERS: Admitting Provider Student in an Organized Health Care Education/Training Program; Emergency Provider Emergency Medicine; PCP Internal Medicine; Visit Provider Student in an Organized Health Care Education/Training Program
DX: R19.7 Diarrhea, unspecified (principal); R55 Syncope and collapse; R53.1 Weakness; U07.1 COVID-19; I10 Essential (primary) hypertension; E13.9 Other specified diabetes mellitus without complications; Z79.84 Long term (current) use of oral hypoglycemic drugs; E78.5 Hyperlipidemia, unspecified; N40.0 Benign prostatic hyperplasia without lower urinary tract symptoms; K21.9 Gastro-esophageal reflux disease without esophagitis; K76.0 Fatty (change of) liver, not elsewhere classified
CPT/HCPCS: 36415; 70450; 71275; 74177; 76705; 80053; 81001; 82270; 83605; 83690; 84484; 85025; 87631; 93005; 93308; 93321; 93325; 96360; 99284; 99285; G0378; A9270; J7030; Q9967

== ENCOUNTER 2024-05-29 07:36 | Day surgery (SDC) | payer MEDICARE, SELFPAY ==
[2024-05-29] VITALS (12 sets, daily range): BP systolic 143–164; BP diastolic 62–102; PULSE 55–78; RESP 14–16; TEMP 35.9–36.7; O2SAT 94–97; BMI 31.2
[2024-05-29] MEDS: 0.9 % SODIUM CHLORIDE 500 ML 500 ML 100 ML IV (07:53)
[2024-05-29] MEDS: SODIUM CHLORIDE 0.9 % (FLUSH) 10 ML SYRINGE IVF (07:53)
--- NOTE | 2024-05-29 08:39 | W.PM.H&PU ---
History & Physical Update History & Physical Update H&P Reviewed and patient assessed: No changes noted
[2024-05-29] MEDS: CEFAZOLIN 2 GM INJ IVP (09:15)
[2024-05-29] MEDS: BUPIVACAINE 0.25% 30 ML INJECTION (10:19)
--- NOTE | 2024-05-29 10:33 | PM.GSPRC ---
Operative Note Date of procedure: 05/29/24 Pre-op diagnosis: Bilateral inguinal hernias Post-op diagnosis: Same Type of Procedure: Laparoscopic bilateral inguinal hernia repair with mesh Indications: The patient is an 78-year-old male who presented to clinic with a symptomatic left inguinal hernia. On exam he was also found to have a left inguinal hernia. After discussion, given his symptoms which appeared to be partially obstructing bowel movements, I recommended repair and he agreed to proceed. Procedure Description: After discussing the risks and benefits of the procedure, the patient signed informed consent.? The operative site was marked and the patient was brought to the operating room and placed on the operating table in supine position.? Care was taken to pad the patient's pressure points.?? The patient was then intubated by anesthesia.?? The operative site was then prepped and draped in the usual sterile fashion.? A time-out was then performed. A curvilinear incision was made below the umbilicus. Dissection was carried down to subcutaneous tissue until the anterior rectus fascia was encountered. This was incised off the midline on the left. The rectus muscle fibers were then retracted exposing the posterior fascia. A port with a dissecting balloon was then introduced into the pre-preperitoneal space. This was inflated under direct vision. The balloon was deflated, removed, and a 10 mm working port was placed. The space was insufflated and a 10 mm 30-degree scope was then advanced into the space. Two 5 mm ports were placed in the midline under direct vision. Dissection began on the left side. Remy's ligament and the pubic bone were exposed medially. Following this, dissection was carried out laterally. A large indirect defect was noted. The sac appeared to be containing intra-abdominal tissue, possibly colon. This was able to be reduced. The sac was dissected free from the cord structures using a combination of sharp and blunt dissection. Once the sac was completely reduced, attention was turned to the left side. Similarly the pubic bone was exposed medially. There was a small direct inguinal hernia containing fat. This was reduced. There was also a small preperitoneal fat-containing indirect hernia which was also reduced. Once the peritoneum was sufficiently dissected free from the cord structures, a piece of mesh for the right side was obtained and placed into the abdomen. This was secured in place at with a Tacker medially at Remy's ligament, 1 tack superiorly above the direct hernia and 1 tack laterally with care to avoid the epigastric vessels and stay above the inguinal ligament. Similarly mesh was placed on the left side and secured in place both medially at Remy's ligament and laterally on the abdominal wall. Once this was completed the sacs were placed on top of the mesh and the preperitoneal space desufflated under direct vision to ensure the mesh laid flat. 10 mL of 0.5% Marcaine were instilled into the preperitoneal space through a port. The ports were removed. The fascia from the infraumbilical port was closed with 0 Vicryl. The skin incisions were closed with absorbable subcuticular suture. Sterile dressings were then applied. The scrotum was examined to ensure that both testicles were down. Instrument sponge and needle counts were correct at the end of the case. ? The patient was then woken and transported to the recovery area in stable condition. ? The patient tolerated the procedure well. Findings: Left-sided large indirect inguinal hernia likely containing colon Right-sided small direct inguinal hernia as well as a small preperitoneal fat containing indirect hernia Implants: Bard 3DMax mesh Anesthesia: GETA Surgeon: Xin Arteaga MD Estimated blood loss (mL): 5 Condition: stable Disposition: PACU
--- NOTE | 2024-05-29 10:39 | W.ANESCHARGE ---
Anesthesia Charges Start Date/Time Anesthesia Start Date: 05/29/24 Anesthesia Start Time: 08:56 Stop Date/Time Anesthesia Stop Date: 05/29/24 Anesthesia Stop Time: 10:38
[2024-05-29] MEDS: HYDROmorphone 0.5 mg/0.5 ml inj IVP (10:54)
== END 2024-05-29 12:23 | disposition home or self-care (01) ==
PROVIDERS: PCP Internal Medicine; Visit Provider Surgery
PROC: (CPT 49650; principal; 2024-05-29 09:00)
DX: K40.20 Bilateral inguinal hernia, without obstruction or gangrene, not specified as recurrent (principal); E13.9 Other specified diabetes mellitus without complications; I10 Essential (primary) hypertension
CPT/HCPCS: 49650; 00830; 82962; C1781; J0330; J0665; J0690; J1100; J1171; J2405; J2704; J2710; J3010; J7030

== ENCOUNTER 2024-10-10 10:25 | Outpatient (CLI) | payer MEDICARE, SELFPAY | END 2024-10-10 10:26 | disposition home or self-care (01) | LOC: NFLDREF 10:26 | PROVIDERS: PCP Internal Medicine; Visit Provider Internal Medicine | DX: N52.9 Male erectile dysfunction, unspecified (principal) | CPT/HCPCS: 84270; 84402; 84403 ==

== ENCOUNTER 2025-02-13 10:15 | Outpatient (CLI) | payer MEDICARE, SELFPAY | END 2025-02-13 10:16 | disposition home or self-care (01) | LOC: NFLDREF 10:16 | PROVIDERS: PCP Internal Medicine; Visit Provider Internal Medicine | DX: N40.1 Benign prostatic hyperplasia with lower urinary tract symptoms (principal); R35.0 Frequency of micturition; Z12.5 Encounter for screening for malignant neoplasm of prostate | CPT/HCPCS: G0103 ==